=== PATIENT | female | born 1985 | race Caucasian/White ===

== ENCOUNTER → 2018-01-29 14:21 | Outpatient (CLI) | payer MEDICAID, SELFPAY ==
[2018-01-29 15:48] LABS: Hematocrit 35.4 % (37-47); Hemoglobin 11.9 g/dl (12.0-15.0); Mean Corp Hgb Conc 33.6 g/gl (32-36); Mean Corpuscular Hgb 30.4 pg (27.0-32.0); Mean Corpuscular Volume 90.5 fL (81-99); Mean Platelet Vol. 10.8 fl (6.2-12.0); Platelet Count 166 K/mm3 (150-450); RBC Distribution Width SD 42.4 fl (35.1-43.9); Red Blood Count 3.91 M/mm3 (4.2-5.4); Scan Indicated on CBC? Y/N NO; White Blood Count 8.9 K/mm3 (4.4-11.0)
[2018-01-29 15:55] LABS: Glucose Challenge Gest 1H 50g 84 mg/dL (70-140)
== END ==
PROVIDERS: Visit Provider Obstetrics & Gynecology
DX: Z34.83 Encounter for supervision of other normal pregnancy, third trimester (principal)
CPT/HCPCS: 36415; 82950; 85027

== ENCOUNTER → 2018-03-12 14:03 | Outpatient (CLI) | payer MEDICAID, SELFPAY ==
--- NOTE | 2018-03-12 14:03 | DT_ITS ---
This patient was seen during an EMR downtime March 05, 2018 - March 12, 2018. This patient may have a combination of paper and electronic documentation or all paper documentation. All documentation is viewable within the e-chart portion of [facility] for each patient visit.
[2018-03-12 19:04] LABS: Group B Strep DNA By PCR Negative (Negative)
[2018-03-12 19:05] LABS: Internal Control PASS; Probe Check PASS; Specimen Processing Control PASS
== END ==
PROVIDERS: Visit Provider Obstetrics & Gynecology
DX: Z36.85 Encounter for antenatal screening for Streptococcus B (principal)
CPT/HCPCS: 87081; 87653

== ENCOUNTER 2018-03-19 20:05 | Outpatient (CLI) | payer MEDICAID, SELFPAY ==
[2018-03-19 21:01] VITALS: BMI 25.4
[2018-03-19 21:17] LABS: Bacteria 0 SEEN /hpf (None Seen); Mucous, Urine 0 SEEN /hpf (<or=2+); Red Blood Cells-Urine 0 SEEN /hpf (0-5); White Blood Cells 0 SEEN /hpf (0-5)
[2018-03-19 21:18] LABS: Color, Urine Yellow (Yellow); Glucose, Dipstick Normal (Normal); Ketone-Dipstick Negative (Negative); Leukocyte Esterase-Dipstick 25 /ul (Negative); Nitrite-Dipstick Negative (Negative); Occult Blood-Urine 10 /ul (Negative); Protein-Dipstick Negative (Negative); Specific Gravity, Urine 1.005 (1.002-1.030); Urine Bilirubin Dipstick Negative (Negative); Urine Clarity Clear (Clear); Urine Urobilinogen Normal (Normal); Urine pH 6.5 (5.0 - 8.0)
[2018-03-19 21:48] LABS: Squamous Epithelial Cells - UA 0-5 SEEN /hpf (5-10)
--- NOTE | 2018-03-25 15:21 | OB.TRI.NOTE ---
History of Present Illness Date of Service: 03/20/18 Was patient seen by the physician?: No Reason For Visit: RULE OUT LABOR Final GENNA Source: US <20 weeks Gestational age: 36 weeks 2 days History of Present Illness: 32yo at 36 2/7 weeks gestatoin with c/o contractions. Allergies Penicillins Allergy (Verified 03/19/18 21:10) Unknown Physical Exam Vitals: avss NST - FHR Rate Baby A Baseline: 120 Variability:: Moderate Accelerations:: 15 x 15 Decelerations:: None NST Reactive:: Yes FHR Category:: Category I Uterine Activity:: 1-2/10 min Impression/Plan 32yo at 36 3/7wga with false labor, Cat I FHR -d/c home
== END 2018-03-19 23:50 | disposition home or self-care (01) ==
LOC: WPOUT 20:57 → WP 20:58
PROVIDERS: Visit Provider Obstetrics & Gynecology
DX: O47.03 False labor before 37 completed weeks of gestation, third trimester (principal); Z3A.36 36 weeks gestation of pregnancy
CPT/HCPCS: 59025; 59050; 81001; 99218; G0378

== ENCOUNTER 2018-03-28 12:59 | Emergency (ER) | payer MEDICAID, SELFPAY ==
[2018-03-28 13:01] VITALS: BP 116/92; PULSE 81; RESP 16; TEMP 36.9; O2SAT 100; BMI 24.8
--- NOTE | 2018-03-28 13:04 | NURSING ---
pt states she has been having small episodes of contractions and is almost 5cm dilated as of monday03/26/18
--- NOTE | 2018-03-28 13:27 | ED.DCSUM_ITS ---
- ER Visit Summary Date of Service: 03/28/18 Chief Complaint: Back pain History of Present Illness: The patient is a 32 F who is 38 weeks . She has had increasing low back pain for the past 9 days. She has intermittent spasms. The pain starts in her left buttock and radiates down her left leg. She has some anterior leg numbness and tingling. She never had issues with this before. Denies any injuries. Denies abdominal pain. Denies bleeding or discharge. She was having contractions yesterday, but none today. She was seen previously and treated with Tylenol. Her symptoms are not improving. Physical Examination: Vital signs unremarkable. Afebrile. Patient is tearful and pacing about the room. Abdomen is gravid. Nontender. Back shows some tenderness in the left lumbosacral area. Lower extremities otherwise unremarkable. She is neurovascular intact distally except for some subjective paresthesias to her anterior leg down to her foot. Test Results: None Emergency Department Course and Treatment: Patient was discussed with Dr. 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 He recommended continuing Tylenol. She may add [place], Flexeril, and prednisone. Risks were discussed. The patient will be treated as an outpatient. She may return for any new or worsening issues. Treatment Plan: As above Disposition: Discharged Impression: 1. Low back pain with left-sided sciatica This note was generated with [employer] dictation software. It may contain incorrect words, spelling, and punctuation that were not noted in review of the chart prior to signing ED Disposition - Plan for ED Patient: Chief Complaint: Back Referrals: Care Physician,No Primary [Primary Care Provider] -
--- NOTE | 2018-03-28 13:27 | ED.DEP ---
ED Disposition - Plan for ED Patient: Chief Complaint: Back Instructions: Back Pain During Prescriptions: Hydrocodone Bitart/Apap 5-325 [[place] 5MG-325MG] 1 tab PO Q6H PRN PRN 3 Days #10 tab PRN Reason: Pain Prednisone 40 mg PO UD 4 Days #16 tab Cyclobenzaprine [Flexeril] 10 mg PO TID PRN #10 tab PRN Reason: Muscle Spasm Referrals: Bang Garcia MD [STAFF PHYSICIAN] -
[2018-03-28] MEDS: HYDROcodone Bitartrate/Apap 5/325 Tablet PO (13:38)
[2018-03-28] MEDS: predniSONE 20 MG Tablet 40 MG PO (13:38)
== END 2018-03-28 13:44 | disposition home or self-care (01) ==
PROVIDERS: Emergency Provider Emergency Medicine
DX: O26.893 Other specified pregnancy related conditions, third trimester (principal); M54.42 Lumbago with sciatica, left side; R25.2 Cramp and spasm; Z3A.38 38 weeks gestation of pregnancy
CPT/HCPCS: 99285

== ENCOUNTER 2018-03-28 15:50 | Emergency (ER) | payer MEDICAID, SELFPAY ==
[2018-03-28 15:52] VITALS: BP 104/84; PULSE 101; RESP 18; TEMP 36.8; O2SAT 97; BMI 24.8
--- NOTE | 2018-03-28 16:20 | ED.VISSUMM ---
- ER Visit Summary Date of Service: 03/28/18 Chief Complaint: Severe left-sided back pain with numbness dorsal and plantar surface of left foot History of Present Illness: The patient is a 32 F who states this is her third visit to the emergency department in the last 9 days. Today she had 2 visits. She denies fever, chills night sweats. She denies bowel bladder dysfunction. I saddle paresthesia anesthesia. She denies symptoms consistent with radicular pain. She denies foot drop. Denies weakness in her quadricep muscles going up or down steps. She does have frequency. Denies vaginal bleeding or discharge. She denies change in color urine. She does report constipation. She states she has a pressure sensation in her low back. Please read written note for complete detail. Physical Examination: Vital signs are remarkable for a heart rate of 101. Patient began to cry when she was telling me her symptoms. Gait was observed from the restroom to the cot. She is able to walk on heels and toes. Abdomen is remarkable for gravid uterus. Back exam is remarkable for piercings. There is also tattoos. Straight leg test is negative. Crossover test is negative. Patella and ankle reflex are 3+ symmetric. There is no clonus or Babinski sign. EHL is intact. Normal perianal sensation. Test Results: None Emergency Department Course and Treatment: Patient was informed that the opiate analgesia was prescribed we will make her constipation worse. She was instructed to take either Metamucil or MiraLAX. She stated she wants watery stool now. She was informed she should drink 1 glass of MiraLAX every 1-2 hours until she has results. Treatment Plan: Appropriate home-going instructions and follow-up with credit department manager Dr. Maximo Hendrix Disposition: Discharged to home Impression: 1. Left lumbar sacral low back pain of muscular etiology 2. Constipation 3. Third trimester This note was generated with [employer] dictation software. It may contain incorrect words, spelling, and punctuation that were not noted in review of the chart prior to signing ED Disposition - Plan for ED Patient: Disposition: Home or Assisted Living Chief Complaint: Lower Extremity Injury Instructions: ED Constipation, ED Neck Back Pain General Referrals: Care Physician,No Primary [Primary Care Provider] - Maximo Hendrix MD [STAFF PHYSICIAN] - As Needed
== END 2018-03-28 16:31 | disposition home or self-care (01) ==
PROVIDERS: Emergency Provider Emergency Medicine
DX: O26.893 Other specified pregnancy related conditions, third trimester (principal); M54.42 Lumbago with sciatica, left side; O99.613 Diseases of the digestive system complicating pregnancy, third trimester; K59.00 Constipation, unspecified; R25.2 Cramp and spasm; Z3A.38 38 weeks gestation of pregnancy
CPT/HCPCS: 96374; 96375 ×2; 96376; 59025; 59050; 76815; 81001; 99218; 99282; 99285; A4216; G0378

== ENCOUNTER 2018-03-28 19:50 | Outpatient (CLI) | payer MEDICAID, SELFPAY ==
[2018-03-28 20:36] VITALS: BMI 24.8
[2018-03-28] MEDS: Nalbuphine 10 MG/ML Ampul IV ×2 (21:00→23:38)
[2018-03-28] MEDS: Bisacodyl 10 MG Suppository RECTAL (22:17)
[2018-03-28 23:44] LABS: Mucous, Urine 0 SEEN /hpf (<or=2+); Red Blood Cells-Urine 0 SEEN /hpf (0-5)
[2018-03-28 23:52] LABS: Color, Urine Yellow (Yellow); Glucose, Dipstick Normal (Normal); Ketone-Dipstick 5 mg/dl (Negative); Leukocyte Esterase-Dipstick 500 /ul (Negative); Nitrite-Dipstick Negative (Negative); Occult Blood-Urine 10 /ul (Negative); Protein-Dipstick Negative (Negative); Specific Gravity, Urine 1.015 (1.002-1.030); Urine Bilirubin Dipstick Negative (Negative); Urine Clarity Cloudy (Clear); Urine Urobilinogen Normal (Normal)
[2018-03-29 00:08] LABS: Squamous Epithelial Cells - UA 5-10 SEEN /hpf (5-10); White Blood Cells 25-50 SEEN /hpf (0-5)
[2018-03-29 00:09] LABS: Bacteria RARE /hpf (None Seen)
[2018-03-29] MEDS: HYDROmorphone 1 MG/ML Syringe IV ×2 (00:45→03:46)
--- NOTE | 2018-03-29 08:04 | OB.TRI.HP_ITS ---
- Problem List (1) Sciatic nerve pain Status: Acute Qualifiers: Laterality: left Qualified Code(s): M54.32 - Sciatica, left side History of Present Illness Date of Service: 03/29/18 Was patient seen by the physician?: Yes Reason For Visit: R/O LABOR/sciatica Date of Service: 03/29/18 Final GENNA: 04/14/18 Final GENNA Source: US <20 weeks Gestational age: 37 Weeks and 5 Days Allergies Penicillins Allergy (Verified 03/28/18 16:04) Unknown Physical Exam General: Alert, Oriented x3, - - appears uncomfortable but much improved after overnight observation Cardiovascular: Regular rate, Regular Rhythm Lungs: Clear to auscultation, Normal air movement Abdomen: Soft, Non Tender, Non-Distended, Gravid, Appropriate for Gestational Age Extremities:: No edema Neurological: Neuro grossly intact WATER CONSERVATIONIST: Normal external genitalia Estimated gestational size: Appropriate for gestational size Presentation: Cephalic Cervix Dilation (cm): 4 Station: -2 Effacement (%): 50 NST - FHR Rate Baby A Baseline: 140s Variability:: Moderate Accelerations:: 15 x 15 Decelerations:: None NST Reactive:: Yes, Appropriate for gestational age FHR Category:: Category I Uterine Activity:: rare Impression/Plan Sciatic type left buttock and back pain. Was seen in er and sent home with cyclobenzaprine and oxycodone. Presented here hour after taking these meds with hip pain. No signs of active labor or SROM. NST reassuring. Given 2 doses of IV dilaudid here. After 8 hours of observation was feeling somewhat better. Instructed to followup as scheduled and can arrange outpatient physical therapy if needed.
== END 2018-03-29 08:15 | disposition home or self-care (01) ==
LOC: WPOUT 20:26 → WP 20:27
PROVIDERS: Visit Provider Obstetrics & Gynecology
DX: M54.32 Sciatica, left side (principal)
CPT/HCPCS: 59025; 59050; 76815; 81001; 99218; A4216; G0378

== ENCOUNTER 2018-04-10 12:33 | Outpatient (CLI) | payer MEDICAID, SELFPAY ==
[2018-04-10 13:03] VITALS: BMI 26.2
[2018-04-10 13:33] LABS: ROM Internal Control Test YES-OK TO RESULT pt. (Internal QC); ROM Patient Test Negative (Negative)
--- NOTE | 2018-04-10 21:12 | OB.TRI.NOTE ---
History of Present Illness Date of Service: 04/10/18 Was patient seen by the physician?: Yes Reason For Visit: R/O RUPTURE Date of Service: 04/10/18 Final GENNA: 04/14/18 Final GENNA Source: US <20 weeks Gestational age: 39 Weeks and 3 Days History of Present Illness: 32 yo AB1 female at 39+ wk scheduled for induction at 04/16/18 presents with CC of gush of fluid. feeling minimal crampiness Allergies Penicillins Allergy (Verified 04/10/18 13:13) Unknown Physical Exam General: Alert, Oriented x3, Cooperative, No apparent distress HEENT: Atraumatic Abdomen: Soft, Gravid Presentation: Cephalic Cervix Dilation (cm): 3 - ROM TEST NEGATIVE Station: -2 NST - FHR Rate Baby A Baseline: 110-120 with avg variability accels to 150s Variability:: Moderate Accelerations:: 15 x 15 Decelerations:: None NST Reactive:: Yes, Appropriate for gestational age FHR Category:: Category I Uterine Activity:: Irreg UCs with irritability noted. UCs q 6-15 mins Impression/Plan 39 + wk False labor Home. Return if inc s/sx of labor. Plan for induction as scheduled.
== END 2018-04-10 14:20 | disposition home or self-care (01) ==
LOC: WPOUT 13:00 → WP 13:02
PROVIDERS: Visit Provider Obstetrics & Gynecology
DX: O47.1 False labor at or after 37 completed weeks of gestation (principal); Z3A.39 39 weeks gestation of pregnancy
CPT/HCPCS: 59025; 59050; 84112; 99218; G0378

== ENCOUNTER 2018-04-14 03:25 | Inpatient (IN) | payer MEDICAID, SELFPAY ==
[2018-04-14] MEDS: Lactated Ringers 1,000 ML 50 ML IV (03:55)
[2018-04-14 04:08] LABS: Hematocrit 43.2 % (37-47); Hemoglobin 14.9 g/dl (12.0-15.0); Mean Corp Hgb Conc 34.5 g/gl (32-36); Mean Corpuscular Hgb 30.7 pg (27.0-32.0); Mean Corpuscular Volume 89.1 fL (81-99); Mean Platelet Vol. 12.5 fl (6.2-12.0); Platelet Count 181 K/mm3 (150-450); RBC Distribution Width CV 13.5 % (11.6-14.6); RBC Distribution Width SD 43.4 fl (35.1-43.9); Red Blood Count 4.85 M/mm3 (4.2-5.4); White Blood Count 13.1 K/mm3 (4.4-11.0)
[2018-04-14 04:09] LABS: Scan Indicated on CBC? Y/N NO
[2018-04-14] MEDS: Oxytocin 30 units/NS 500 ml 30 UNITS/500 ML IV.SOLN 334 UNITS IV (05:39)
[2018-04-14 05:55] VITALS: BMI 24.5
--- NOTE | 2018-04-14 05:59 | PCM.OB.VAG ---
Vaginal Delivery Maternal Presentation: Active Labor 40 wk labor. Amniotic Membrane Rupture Type: Spontaneous at home Final GENNA: 04/14/18 Final GENNA Source: US <20 weeks Gestational age: 40 Weeks and 0 Days Date of Procedure: 04/14/18 Pre-Operative Diagnosis: 40 wk labor Post-Operative Diagnosis: smae Surgery/ Procedure Performed: Spontaneous Vaginal Delivery Anesthesiologist: Vandana Washington Type of Anesthesia: Epidural Description of Procedure: Epidural placed per pt request. of a rudd male over intact perineum. Head delivered TRINI. OP and nares bulb suctioned on perineum. No nuchal cord. Shoulders delivered easily. to maternal abdomen. End stage meconium noted. Cord clamped x two and cut. Infant then to isolette for stimulation, but with immediate vigorous cry then noted. Routine venous and arterial cord gases collected. Placenta delivered by spont expulsion, expression. 3V normal appearing, intact with trailing membranes PP exam: abrasions bilateral anterior perineum no lacerations, no repair Multiple flat, sessile dark skin tags noted Approximately eight - nine lesions. Patient hoping to have these all removed now under epidural. Advised against this -- none excised -- as all would require excisional biopsy and suturing. Largest lesion approx 3 cm x 1 cm length. EBL 350 cc pt and infant tolerated delivery well. To recovery stable condition. Presentation: Vertex, TRINI Placental Delivery Description: Spontaneous, Expressed Placenta Disposition: [facility] Cord Vessel Description: 3 Vessels Cord Gases drawn per routine: ABG, VBG Cord Entanglement: None Estimated Blood Loss: 350 Infant A gender: Male (1 minute): 8 (5 minute): 9 Episiotomy Description: None Laceration: None - abrasions only Medications given after delivery: IV Pitocin Complications: None
[2018-04-14] MEDS: Oxytocin 30 units/NS 500 ml 30 UNITS/500 ML IV.SOLN 167 UNITS IV (06:09)
--- NOTE | 2018-04-14 06:09 | PCM.DCVAG ---
Discharge Diet: No Restrictions Discharge Activity: May Shower, May Take a Tub Bath Return to work on:: 05/28/18 May resume sexual activity in: 4-6 weeks Additional Activity Instructions:: Nothing in the vagina for 4-6 weeks. You may return to work/school in 6 weeks. Additional Instructions: If you experience any of the following, contact your healthcare provider. Bleeding that soaks a pad every hour for 2 hours Fever 100.4 or higher Unrelieved abdominal pain Problems urinating (including inability to urinate or burning while urinating). Visual changes Severe headache Flu-like symptoms Pain or redness in one of both of your breasts Pain, warmth, tenderness or swelling in your legs, especially the calf area Frequent nausea and vomiting Symptoms of depression or anxiety If you experience any of the following, call 911 or go to the nearest Emergency Room. Chest pain Problems breathing Seizure activity Partial or complete paralysis of a body part, slurred speech, weakness or drooping of the face, or a sudden inability to walk or hold your balance Allergies/Adverse Reactions: Allergies Penicillins Allergy (Verified 04/10/18 13:13) Unknown Medications to take at Discharge Pediatric Multivit Comb No.42 [Flintstones] 1 each PO DAILY 04/10/18 Please Follow Up With: Bang Garcia MD - [phone] When: Call to make an appointment with your doctor in 6 weeks. Primary Care Physician: Care Physician,No Primary [Primary Care Provider] - Test Results: Test results from this visit will be discussed in further detail at your follow-up appointment, if applicable. Proposed Discharge Date: 04/16/18
--- NOTE | 2018-04-14 06:10 | DCINST_ITS ---
Discharge Diet: No Restrictions Discharge Activity: May Shower, May Take a Tub Bath Return to work on:: 05/28/18 May resume sexual activity in: 4-6 weeks Additional Activity Instructions:: Nothing in the vagina for 4-6 weeks. You may return to work/school in 6 weeks. Additional Instructions: If you experience any of the following, contact your healthcare provider. * Bleeding that soaks a pad every hour for 2 hours * Fever 100.4 or higher * Unrelieved abdominal pain * Problems urinating (including inability to urinate or burning while urinating) . * Visual changes * Severe headache * Flu-like symptoms * Pain or redness in one of both of your breasts * Pain, warmth, tenderness or swelling in your legs, especially the calf area * Frequent nausea and vomiting * Symptoms of depression or anxiety If you experience any of the following, call 911 or go to the nearest Emergency Room. * Chest pain * Problems breathing * Seizure activity * Partial or complete paralysis of a body part, slurred speech, weakness or drooping of the face, or a sudden inability to walk or hold your balance Allergies/Adverse Reactions: Allergies Penicillins Allergy (Verified 04/10/18 13:13) Unknown Medications to take at Discharge Pediatric Multivit Comb No.42 [Flintstones] 1 each PO DAILY 04/10/18 Please Follow Up With: Bang Garcia MD - [phone] When: Call to make an appointment with your doctor in 6 weeks. Primary Care Physician: Care Physician,No Primary [Primary Care Provider] - Test Results: Test results from this visit will be discussed in further detail at your follow- up appointment, if applicable. Proposed Discharge Date: 04/16/18
[2018-04-14] MEDS: 0.9% Saline Lock 10 ML Syringe IV (07:10)
--- NOTE | 2018-04-14 10:59 | NURSING ---
1015-Dr Shea notified that pt's significant other and daughter have left the unit for a few hours, so pt and baby are alone in room, Dr Shea in room to discuss the risks of while taking the supplement that she has been taking called Mike despite the discussion and eyelet operator recommendation to either stop or continue to breastfeed and stop the supplement, pt chose to continue to breastfeed baby and at 1030 she latched baby on breast.
[2018-04-14 11:15] VITALS: BP 106/69; PULSE 78; RESP 16; TEMP 36.8; O2SAT 98
--- NOTE | 2018-04-14 11:34 | CASEMGMT ---
SW referral received, pt just delivered today and it is anticipated pt will be here until Monday. SW will see pt Monday, RN in [facility] is aware. BEATRIZ Garay, DIABETES MANAGER
[2018-04-14 16:45] VITALS: BP 108/68; PULSE 73; RESP 16; TEMP 37.4; O2SAT 100
[2018-04-14] MEDS: Ibuprofen 600 MG Tablet PO (16:55)
[2018-04-14] MEDS: Multivitamins,Therapeutic Tablet 1 TABLET PO (18:11)
[2018-04-14 19:51] VITALS: BP 118/77; PULSE 77; RESP 16; TEMP 36.7
[2018-04-15] VITALS: BP 120/81; PULSE 75; RESP 16; TEMP 36.8
[2018-04-15 04:15] VITALS: BP 93/56; PULSE 65; RESP 16; TEMP 37.1
--- NOTE | 2018-04-15 07:33 | PCM.PN.OB ---
Subjective: PPD#1 Doing well. Pain control adequate. Would like to go home if baby is released. Circumcision planned, but not sure if done or not yet. h/o herbal opioid substance in and tox screen planned on baby. Objective: Walking around room, holding baby. - Physical Exam General: Alert, Oriented x3, Cooperative, No apparent distress HEENT: Atraumatic Neck: Supple Neurological: Cranial nerves II-XII grossly intact Psych/Mental Status: Normal Affect Vital Signs Temp Pulse Resp BP Pulse Ox 98.8 F 65 16 93/56 L 100 04/15/18 04:15 04/15/18 04:15 04/15/18 04:15 04/15/18 04:15 04/14/18 16:45 Oxygen Delivery Method Room Air Weight: 61 kg Body Mass Index (BMI) 24.5 Intake and Output for Last 24 Hours 04/13/18 04/14/18 04/15/18 23:59 23:59 23:59 Output Total 500 / 500 Balance -500 / -500 Medical Necessity - Tobacco Use Smoking Status: Former smoker Assessment/Plan All Active Problems Sciatic nerve pain (Acute) PPD#1 Stable . Continue care. Would like to go home today, but tox screen on baby and Social service consult also needed. Will hold dischg until tomorrow.
[2018-04-15 10:00] VITALS: BP 129/87; PULSE 76; RESP 18; TEMP 36.6
[2018-04-15] MEDS: Multivitamins,Therapeutic Tablet 1 TABLET PO (17:12)
[2018-04-15] MEDS: Ibuprofen 600 MG Tablet PO (17:14)
[2018-04-15 18:00] VITALS: BP 110/71; PULSE 71; RESP 16; TEMP 36.6
[2018-04-15 20:00] VITALS: BP 124/78; PULSE 77; RESP 17; TEMP 37.1
[2018-04-15 22:00] VITALS: PULSE 99; RESP 15; TEMP 37.1
[2018-04-16 02:00] VITALS: BP 135/88; PULSE 95; RESP 17
--- NOTE | 2018-04-16 07:56 | PCM.PN.OB ---
Subjective: PPD#2 Pt states no concerns for self. Taking prn pain meds. Baby is having jerking motions in his sleep. Pt had been on an herbal substance throughout with opioid activity. Advised that her baby may be withdrawing to medications/drugs taken. Called Dr. Sultana in to evaluate baby... still with jerking motion of the hand. - Physical Exam General: Alert, Oriented x3, Cooperative, No apparent distress HEENT: Atraumatic Neck: Supple Abdomen: Soft - Fundus firm NT at umbilicus Neurological: Cranial nerves II-XII grossly intact Psych/Mental Status: Normal Affect - concerned re baby Vital Signs Temp Pulse Resp BP Pulse Ox 98.7 F 95 17 135/88 H 100 04/15/18 22:00 04/16/18 02:00 04/16/18 02:00 04/16/18 02:00 04/14/18 16:45 Oxygen Delivery Method Room Air Weight: 61 kg Body Mass Index (BMI) 24.5 Intake and Output for Last 24 Hours 04/14/18 04/15/18 04/16/18 23:59 23:59 23:59 Output Total 500 / 500 Balance -500 / -500 Medical Necessity - Tobacco Use Smoking Status: Former smoker Assessment/Plan All Active Problems Sciatic nerve pain (Acute) PPD#2 Stable . Continue care. Likely home today, meconium tox screen on baby pending, Social service consult also needed. Will hold dischg until completion
--- NOTE | 2018-04-16 07:59 | PN.OBGYN_ITS ---
Subjective: PPD#2 Pt states no concerns for self. Taking prn pain meds. Baby is having jerking motions in his sleep. Pt had been on an herbal substance throughout with opioid activity. Advised that her baby may be withdrawing to medications/ drugs taken. Called Dr. Sultana in to evaluate baby... still with jerking motion of the hand. - Physical Exam General: Alert, Oriented x3, Cooperative, No apparent distress HEENT: Atraumatic Neck: Supple Abdomen: Soft - Fundus firm NT at umbilicus Neurological: Cranial nerves II-XII grossly intact Psych/Mental Status: Normal Affect - concerned re baby Vital Signs Temp Pulse Resp BP Pulse Ox 98.7 F 95 17 135/88 H 100 04/15/18 22:00 04/16/18 02:00 04/16/18 02:00 04/16/18 02:00 04/14/18 16:45 Oxygen Delivery Method Room Air Weight: 61 kg Body Mass Index (BMI) 24.5 Intake and Output for Last 24 Hours 04/14/18 04/15/18 04/16/18 23:59 23:59 23:59 Output Total 500 / 500 Balance -500 / -500 Medical Necessity - Tobacco Use Smoking Status: Former smoker Assessment/Plan All Active Problems Sciatic nerve pain (Acute) PPD#2 Stable . Continue care. Likely home today, meconium tox screen on baby pending, Social service consult also needed. Will hold dischg until completion
[2018-04-16 08:09] VITALS: BP 123/86; PULSE 74; RESP 16; TEMP 37.3
[2018-04-16] MEDS: Multivitamins,Therapeutic Tablet 1 TABLET PO (08:53)
[2018-04-16] MEDS: Senna/Docusate Sodium 1 Tablet PO (09:01)
[2018-04-16] MEDS: Ibuprofen 600 MG Tablet PO (13:48)
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
--- NOTE | 2018-04-17 15:57 | CASEMGMT ---
Social Work Note Labor and Delivery Unit Met with MOB today, offered support and provided resources for home going. Called [facility] ([facility]) and spoke with Sara in intake at [phone], extension 2. Reported concern for Substance Exposed Infant, maternal substance use history as reported by the MOB to this field underwriter, and care indicating that MOB should stop using Kratom during . Reported concerns for baby's DIAMANTE scores and admission to the [facility] for continued care and treatment. Reported the negative urine drug screen for baby, and pending meconium drug screen. Reported maternal history of depression, anxiety, depression present during , and MOB not in any current or past treatment for mental health or substance abuse. Reported limited support system in place for MOB in the community. Provided demographic data including persons reported to be living in the home, MOB's receptiveness to social work interactions, and strengths present for this family. No other services requested or indicated for this visit. Social work continues to follow patient/MOB while baby is in the [facility] system. -BEATRIZ Arreola, FRONT END LOADER DRIVER
== END 2018-04-16 14:00 | disposition home or self-care (01) | DRG 372 ==
PROVIDERS: Admitting Provider Obstetrics & Gynecology; Visit Provider Obstetrics & Gynecology
DX: O77.0 Labor and delivery complicated by meconium in amniotic fluid (principal); O90.89 Other complications of the puerperium, not elsewhere classified; M54.30 Sciatica, unspecified side; Z87.891 Personal history of nicotine dependence; Z3A.40 40 weeks gestation of pregnancy; Z37.0 Single live birth
CPT/HCPCS: 59050; 85027; 86850; 86900; 99218; J7120; A4216; G0378

== ENCOUNTER → 2023-04-28 | Outpatient (CLI) | payer MEDICAID, SELFPAY ==
[2023-04-28 16:24] LABS: Vitamin B12 724 pg/mL (211-911); Vitamin D,25 Hydroxy 38.2 ng/mL
[2023-04-28 16:32] LABS: Ferritin 15 ng/mL (8-252); T4 Free Direct 0.91 ng/dL (0.76-1.46)
== END | disposition home or self-care (01) ==
PROVIDERS: PCP Nurse Practitioner Family; Referring Provider Internal Medicine Endocrinology, Diabetes & Metabolism; Visit Provider Internal Medicine Endocrinology, Diabetes & Metabolism
DX: E03.8 Other specified hypothyroidism (principal); E06.3 Autoimmune thyroiditis; E55.9 Vitamin D deficiency, unspecified
CPT/HCPCS: 36415; 82306; 82607; 82728; 84439; 84443

== ENCOUNTER → 2023-09-04 | Outpatient (CLI) | payer MEDICAID, SELFPAY ==
[2023-09-04 11:02] LABS: T4 Free Direct 0.85 ng/dL (0.76-1.46)
== END | disposition home or self-care (01) ==
LOC: LAB 09:23
PROVIDERS: Referring Provider Internal Medicine Endocrinology, Diabetes & Metabolism; Visit Provider Internal Medicine Endocrinology, Diabetes & Metabolism
DX: E03.8 Other specified hypothyroidism (principal); E06.3 Autoimmune thyroiditis
CPT/HCPCS: 36415; 84439; 84443

== ENCOUNTER → 2023-12-04 | Outpatient (CLI) | payer MEDICAID, SELFPAY ==
[2023-12-04 12:19] LABS: T4 Free Direct 0.99 ng/dL (0.76-1.46); Thyroid Stim Hormone (TSH) 7.08 uIU/mL (0.358-3.74)
== END | disposition home or self-care (01) ==
LOC: LAB 10:55
PROVIDERS: Referring Provider Internal Medicine Endocrinology, Diabetes & Metabolism; Visit Provider Internal Medicine Endocrinology, Diabetes & Metabolism
DX: E03.8 Other specified hypothyroidism (principal); E06.3 Autoimmune thyroiditis
CPT/HCPCS: 36415; 84439; 84443

== ENCOUNTER → 2024-03-01 | Outpatient (CLI) | payer MEDICAID, SELFPAY ==
[2024-03-01 15:57] LABS: T4 Free Direct 1.01 ng/dL (0.76-1.46); Thyroid Stim Hormone (TSH) 1.46 uIU/mL (0.358-3.74)
== END | disposition home or self-care (01) ==
LOC: LAB 15:08
PROVIDERS: Referring Provider Internal Medicine Endocrinology, Diabetes & Metabolism; Visit Provider Internal Medicine Endocrinology, Diabetes & Metabolism
DX: E03.8 Other specified hypothyroidism (principal); E06.3 Autoimmune thyroiditis
CPT/HCPCS: 36415; 84439; 84443

== ENCOUNTER → 2024-05-27 | Outpatient (CLI) | payer MEDICAID, SELFPAY ==
[2024-05-27 10:50] LABS: Ferritin 28 ng/mL (8-252); T4 Free Direct 1.17 ng/dL (0.76-1.46)
== END | disposition home or self-care (01) ==
LOC: LAB 08:55
PROVIDERS: Referring Provider Internal Medicine Endocrinology, Diabetes & Metabolism; Visit Provider Internal Medicine Endocrinology, Diabetes & Metabolism
DX: E03.8 Other specified hypothyroidism (principal); E06.3 Autoimmune thyroiditis; E61.1 Iron deficiency
CPT/HCPCS: 36415; 82728; 84439; 84443

== ENCOUNTER → 2024-08-01 | Outpatient (CLI) | payer MEDICAID, SELFPAY ==
[2024-08-01 11:12] LABS: Estradiol 109.5 pg/mL; Follicle Stimulating Hormone 5.4 mIU/mL; T4 Free Direct 1.16 ng/dL (0.76-1.46)
[2024-08-02 13:08] LABS: PROLACTIN 9.3 ng/mL (4.8-33.4)
== END | disposition home or self-care (01) ==
LOC: LAB 10:24
PROVIDERS: Referring Provider Internal Medicine Endocrinology, Diabetes & Metabolism; Visit Provider Internal Medicine Endocrinology, Diabetes & Metabolism
DX: E03.8 Other specified hypothyroidism (principal); E06.3 Autoimmune thyroiditis; N64.3 Galactorrhea not associated with childbirth
CPT/HCPCS: 36415; 82670; 83001; 83002; 84146; 84439; 84443

== ENCOUNTER → 2025-05-21 | Outpatient (CLI) | payer MEDICAID, SELFPAY ==
[2025-05-22 04:07] LABS: PROLACTIN 8.4 ng/mL (4.8-33.4)
== END | disposition home or self-care (01) ==
LOC: LAB 09:10
PROVIDERS: PCP Family Medicine; Referring Provider Internal Medicine Endocrinology, Diabetes & Metabolism; Visit Provider Internal Medicine Endocrinology, Diabetes & Metabolism
DX: E06.3 Autoimmune thyroiditis (principal); E03.8 Other specified hypothyroidism; N64.3 Galactorrhea not associated with childbirth
CPT/HCPCS: 36415; 84146; 84439; 84443

== ENCOUNTER → 2025-09-05 | Outpatient (CLI) | payer MEDICAID, SELFPAY ==
--- OUTSIDE RECORDS SUMMARY | 2025-09-05 12:17 | XMS RPT_ITS | CCD ---
Author Organization [facility] CliniSynh Care Team Providers Care Early Head Start Director Name Role Phone SHAHID DAVIS Unavailable Unavai JUANY Phillips Unavailable Unavailable NO PRIMARY CARE, Unavailable Unavailable CORTEZ MCKEON Unavailable Unavailable JUANY CLAIRE Unavailable Unavailable NO PRIMARY CARE, Unavailable Unavailable Required, No Pcp Unavailable Unavailable Tim Fontaine I Unavailable Unavailable Marina SLEEVE TURNER, SLEEVE TURNER-C Juan Manuel Primary Care Provider Marina SLEEVE TURNER, SLEEVE TURNER-C Juan Manuel Referring Provider Dr. Raffaele Kirby Attending Provider Fer Durand MD Primary Care Provider FER DURAND Referring Unavailable FER DURAND Primary Care Unavailable Dr. Fer Durand MD Primary Care Provider Dr. Raffaele Kirby MD Attending Provider [phone] Raffaele Kirby MD Referring Provider Kraig Farah Primary Care Unavailable Raffaele Kirby Attending Unavailable Raffaele Kirby Referring Unavailable Fer Durand Primary Care Unavailable Raffaele Kirby Attending Unavailable Raffaele Kirby Referring Unavailable FER DURAND Primary Care Unavailable FER DURAND Attending Unavailable FER DURAND Attending Unavailable FER DURAND Primary Care Unavailable FER DURAND Attending Unavailable FER DURAND Primary Care Unavailable Allergies Allergy Classification Reported Allergen(s) Allergy Type Date of Onset Reaction(s) Facility (13 sources) Penicillins; Translations: [PENICILLINS] Propensity to adverse reactions to drug (disorder) 8 Other (See Comments) [facility] Repository (1 source) Penicillin Drug Allergy Unknown [facility] Medications Current Medications Medication Drug Class(es) Dates Sig (Normalized) Sig (Original) activated charcoal, bulk, Powd (4 sources) activated charco al, bulk, Powd by Miscellaneous route daily . Active activated charco al, bulk, Powd by Miscellaneous route daily . 0 Active astaxanthin 4 mg oral capsule (4 sources) astaxanthin 4 mg cap Take by mouth . Active Dhxvige-Usmhaxhjv-Bmko (3 sources) Start: 04-18-2023 take 1 tablet by mouth once daily Jztspbg-Ucborawro-Ncim Active 1 TABLET PO DAILY April 17, 2023 11:00pm Start: 04-18-2023 take 1 tablet by jason th once daily Whnjpqe-Trjzsalls-Auqu Active 1 TABLET P O DAILY April 18, 2023 12:00am cholecalciferol, vitamin D3, (VITAMIN D3 ORAL) (5 sources) cholecalciferol, vitamin D3, (VITAMIN D3 ORAL) Take by mouth daily . Active cholecalciferol, vitamin D3, (VITAMIN D3 ORAL) Take by mouth daily . 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 Other specified hypothyroidism Autoimmune thyroiditis 2 tabs Sundays, 1 tablet Monday-Monday Start: 04-18-2023 End: 05-31-2023 take 1 capsule by mouth once daily Levothyroxine 137 mcg capsule Discontinued 137 ug PO DAILY April 18, 2023 12:00am May 31, 2023 12:08pm Start: 06-29-2022 End: 07-08-2022 take 1 tablet by mouth once daily after mealtime Euthyrox 75 mcg (0.075 mg) oral tablet ; 1 tab(s) orally once a day x 10 days Quantity: 10 Refills: 0 Ordered: 29-Jun-2022 Tim Fontaine I Start: 29-Jun-2022 End: 08-Jul-2022 Generic Substitution Allowed Comments: It is very important that you take or use this exactly as directed. Do not skip doses or discontinue unless directed by your doctor.Medication should be taken with plenty of water.Some non-prescription drugs may aggravate your condition. Read all labels carefully. If a warning appears, check with your doctor before taking.Take medication on an empty stomach 1 hour before or 2 to 3 hours after a meal unless otherwise directed by your doctor. Comment on above: It is very important that you take or use this exactly as directed. Do not skip doses or discontinue unless directed by your doctor.Medication should be taken with plenty of water.Some non-prescription drugs may aggravate your condition. Read all labels carefully. If a warning appears, check with your doctor before taking.Take medication on an empty stomach 1 hour before or 2 to 3 hours after a meal unless otherwise directed by your doctor. nitrofurantoin, macrocrystals 25 mg / nitrofurantoin, monohydrate 75 mg oral capsule (1 source) Nitrofuran Antibacterial Start: 05-28-20 End: 06-02-20 take 1 capsule by mouth twice daily nitrofurantoin, macrocrystal-mon ohydrate, (Macrobid) 100 MG capsule Indications: Acute cystitis without hematuria Take 1 (one) capsule (100 mg total) by mouth 2 (two) times a day for 5 days . 10 capsule 05/28/2024 06/02/2024 Active omega-3 fatty acids/fish oil (fish oil-omega-3 fatty acids) 300-1,000 mg capsule (4 sources) take 2 capsules by mouth once daily omega-3 fatty acids/fish oil (fish oil-omega-3 fatty acids) 300-1,000 mg capsule Take 2 (two) capsules by mouth daily . Active take 2 capsules by mouth once da ayse omega-3 fatty acids/fish oil (fish oil-omega-3 fatty acids) 300-1,000 mg capsule Take 2 (two) capsules by mouth daily . 0 Active Selenium (3 sources) Start: 04-18-2023 take 200 ug by mouth once daily Selenium Active 200 MCG PO DAILY April 17, 2023 11:00pm Start: 04-18-2023 take 200 ug by mouth once perla y Selenium Active 200 MCG PO DAILY April 18, 2023 12:00am SELENIUM ORAL (5 sources) take 200 ug by mouth once daily SELENIUM ORAL Take 200 mcg by mouth daily . Active take 200 ug by mouth once daily SELENIUM ORAL Take 200 mcg by mouth daily . 0 Active SELENIUM ORAL Ta ke by mouth daily . 0 Active tyrosine 1000 mg oral tablet (4 sources) Start: 04-18-2023 take 1000 mg by mout h once daily 1 hour(s) after mealtime Tyrosine Active 1000 MG PO DAILY April 17, 2023 11:00pm administer on an empty stomach, 1 hour before or 2-3 hours after meals Start: 04-18-2023 End: 04-26-2024 take 1 tablet by mouth once daily 1 hour(s) after mealtime Tyrosine 500 mg tablet Discontinued 1000 mg PO DAILY April 18, 2023 12:00am April 26, 2024 11:12am administer on an empty stomach, 1 hour before or 2-3 hours after meals vitamin b12 1 mg oral tablet (4 sources) Vitamin B12 take 1 tablet by mouth once daily cyanocobalamin (B-12) 1000 MCG tablet Take 1 (one) tablet (1,000 mcg total) by mouth daily . Active Completed/Discontinued Medications Medication Drug Class(es) Dates Sig (Normalized) Sig (Original) cabergoline 0.5 mg oral tablet (3 sources) Ergot Derivative Start: 08-04-2024 End: 08-08-2025 take 1 tablet by mouth every week cabergoline (DOSTINEX) 0.5 mg tablet Take 1 (one) tablet (0.5 mg total) by mouth once a week . 08/05/2024 08/08/2025 Discontinued CALCIUM CARB-MAG OX-ZINC GLUC ORAL (4 sources) End: 08-08-2025 CALCIUM CARB-MAG OX-ZINC GLUC ORAL Take by mouth . 08/08/2025 Discontinued CALCIUM CARB-MAG OX-ZINC GLUC ORAL Take by mouth . Active CALCIUM CARB-MAG OX-ZINC GLUC ORAL Take by mouth . 0 Active Xzifglp-Bjtplcwjl-Wmnc tablet (1 source) Start: 04-18-2023 End: 04-26-2024 Lxxxhqu-Hinousuts-Oiyu tablet Discontinued 1 {tbl} PO DAILY April 18, 2023 12:00am April 26, 2024 11:11am cholecalciferol 0.025 mg oral capsule (4 sources) Vitamin D Start: 04-18-2023 End: 04-26-2024 take 1 capsule by mouth once daily Cholecalciferol (Vitamin D3) 25 mcg (1,000 unit) capsule Discontinued 25 ug PO DAILY April 18, 2023 12:00am April 26, 2024 11:11am Cranberry preparation (5 sources) Non-Standardi zed Food Allergenic Extract, Non-Standardi zed Plant Allergenic Extract End: 08-08-2025 CRANBERRY ORAL Take by mouth daily . 08/08/2025 Discontinued CRANBERRY ORAL T tsering by mouth daily . Active CRANBERRY ORAL T tsering by mouth daily . 0 Active [place] 7-Dud-Gxc-Fish Oil (4 sources) Start: 04-18-2023 End: 04-26-2024 [place] 9-Epa-Yzr-Fish Oil (Fi sh Oil) 300-1,000 mg capsule Discontinued 1 NMA PO DAILY April 18, 2023 12:00am April 26, 2024 11:11am Start: 04-18-2023 take 300-1000 mg by mouth once daily [place] 1-Pzc-Sfq-Fish Oil (Fish Oil) 300-1,000 mg capsule Active 1 CAP PO DAILY April 17, 2023 11:00pm Start: 04-18-2023 take 300-1000 mg by mouth once daily [place] 4-Yrg-Qdy-Fish Oil (Fish Oil) 300-1,000 mg capsule Active 1 CAP PO DAILY April 18, 2023 12:00am L-TYROSINE ORAL (4 sources) End: 08-08-2025 take 500 mg by mouth once daily L-TYROSINE ORAL Take 500 mg by mouth daily . 08/08/2025 Discontinued take 500 mg by mouth once daily L-TYROSINE ORAL Take 500 mg by mouth daily . Active take 500 mg by mouth once daily L-TYROSINE ORAL Take 500 mg by mouth daily . 0 Active multivitamin with iron Tab (5 sources) End: 08-08-2025 multivitamin with iron Tab T tsering by mouth once daily . 08/08/2025 Discontinued multivitamin wit h iron Tab Take by mouth once daily . Active multivitamin wit h iron Tab Take by mouth once daily . 0 Active Pediatric Multivitamin No.42 (Flintstones) 1 EACH tablet,chewable (4 sources) Start: 04-10-2018 End: 04-18-2023 take 1 tablet by mouth once daily Pediatric Multivitamin No.42 (Flintstones) 1 EACH tablet,chewable Discontinued 1 NMA PO DAILY April 10, 2018 12:00am April 18, 2023 3:53pm Start: 04-10-2018 End: 04-18-2023 take 1 tablet by mouth once daily Pediatric Multivitamin No.42 (Flintstones) 1 EACH tablet,chewable Discontinued 1 EACH PO DAILY April 09, 2018 11:00pm April 18, 2023 2:53pm Start: 04-10-2018 End: 04-18-2023 take 1 tablet by mouth once daily Pediatric Multivitamin No.42 (Flintstones) 1 EACH tablet,chewable Discontinued 1 EACH PO DAILY April 10, 2018 12:00am April 18, 2023 3:53pm Selenium 200 mcg capsule (1 source) Start: 04-18-2023 End: 04-26-2024 take 1 capsule by mouth once daily Selenium 200 mcg capsule Discontinued 200 ug PO DAILY April 18, 2023 12:00am April 26, 2024 11:12am traZODone hydrochloride 50 mg oral tablet (2 sources) Serotonin Reuptake Inhibitor Start: 08-08-2024 End: 08-08-2025 traZODone (DESYREL) 50 MG tablet Indications: Insomnia, unspecified type 1/2 or a whole tablet as need for sleep . 30 tablet 08/08/2024 08/08/2025 Discontinued Problems Active Problems Problem Classification Problem Date Documented Da te Episodic/Chronic Anxiety disorders (3 sources) Obsessive-compulsive disorder; Translations: [Obsessive-compulsiv e disorder, unspecified] Onset: 08-08-2024 08-08-2024 Chronic Genitourinary symptoms and ill-defined conditions (1 source) Dysuria; Translations: [Dysuria] 05-28-2024 Episodic Immunizations and screening for infectious disease (8 sources) Patient encounter status; Translations: [Encounter for screening for other viral diseases] Onset: 08-08-2025 08-08-2025 Episodic Malaise and fatigue (3 sources) Fatigue; Translations: [Other fatigue] Onset: 12-12-2023 12-06-2023 Episodic Nonmalignant breast conditions (2 sources) Increased ; Translations: [Galactorrhea not associated with childbirth] Onset: 05-27-2025 08-01-2024 Episodic Nutritional deficiencies (1 source) Iron deficiency; Translations: [Iron deficiency] 05-06-2024 Episodic Other circulatory disease (2 sources) Raynaud's phenomenon; Translations: [Raynaud's syndrome without gangrene] Onset: 08-08-2025 08-08-2025 Chronic Other circulatory disease (2 sources) Raynaud's syndrome without gangrene; Translations: [Raynaud's syndrome without gangrene] Onset: 08-08-2025 Chronic Other gastrointestinal disorders (4 sources) 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; Translations: [Malabsorption due to intolerance, not elsewhere classified] 05-01-2023 Chronic Other gastrointestinal disorders (1 source) Malabsorption due to intolerance, not elsewhere classified; Translations: [Other specified intestinal malabsorption] 04-28-2023 Chronic Other screening for suspected conditions (not mental disorders or infectious disease) (4 sources) Encounter for screening for cardiovascular disorders; Translations: [Encounter for screening for diabetes mellitus] Onset: 08-08-2025 Episodic Residual codes; unclassified (1 source) Insomnia; Translations: [Insomnia, unspecified] 08-08-2024 Episodic Spondylosis; intervertebral disc disorders; other back problems (4 sources) Sciatica; Translations: [Sciatica, unspecified side] 04-14-2018 Episodic Thyroid disorders (20 sources) Hypothyroidism; Translations: [Unspecified acquired hypothyroidism] Onset: 12-06-2023 06-29-2022 Chronic Unclassified (2 sources) ABNORMAL LABS 06-29-2022 Comment on above: ABNORMAL LABS Urinary tract infections (1 source) Acute cystitis; Translations: [Acute cystitis without hematuria] 05-28-2024 Episodic Past or Other Problems Problem Classification Problem Date Documented Da te Episodic/Chronic Mood disorders (2 sources) Mood disorders Onset: 08-08-2025 08-08-2025 Unclassified (1 source) Onset: 05-28-2024 05-28-2024 Results Test Name Value Interpretation Reference Range Facility PROLACTIN 4465on 05-22-2025 PROLACTIN 8.4 ng/mL Normal 4.8-33.4 [facility] Comment on above: Result Comment: Perf ormed at: [facility] [address] [id number] Can Capper: Juvenal Miller PhD, Phone: [phone] Performed By: #### L 506.0400, L3702.3231, G648.1527 #### [facility] [address] [place], [address] Serum or plasma prolactin me asurement (mass/volume)Ordered By: Raffaele Kirby on 05-21-2025 Prolactin [Mass/Vol] 8.4 ng/mL 4.8-33.4 [facility] Comment on above: Performed at: [facility] [address] [id number] Director: Juvenal Miller PhD, Phone: [phone] T4 Free Directon 05-21-2025 T4 FREE DIRECT 1.40 ng/dL Normal 0.76-1.46 [facility] Comment on above: Performed By: #### L 506.0400, L3100.5400, S347.3609 #### [facility] [address] [place], [address] T4 freeOrdered By: Raffaele Kirby on 05-21-2025 Free T4 [Mass/Vol] 1.40 ng/dL 0.76-1.46 [facility] TSH DL <= 0.005 mIU/L QnOrde red By: Raffaele Kirby on 05-21-2025 TSH Qn 2.200 uIU/mL 0.300-4.200 [facility] Thyroid Stim Hormone (TSH)on 05-21-2025 TSH 2.200 uIU/mL Normal 0.300-4.200 [facility] Comment on above: Performed By: #### L 506.0400, L3100.5400, L501.9520 #### [facility] [address] [place], [place], [id number] PROLACTIN 4465on 08-02-2024 PROLACTIN 9.3 ng/mL Normal 4.8-33.4 [facility] Comment on above: Result Comment: Perf ormed at: [facility] [id number] Can Capper: Juvenal Miller PhD, Phone: [phone] Performed By: #### L 506.0400, L501.9520, L3100.5055, L3100.5400, L3300.1750 #### [facility] [address] [place], [place], [id number] Estradiolon 08-01-2024 ESTRADIOL 109.5 pg/mL Normal [facility] Comment on above: Result Comment: NORM AL REFERENCE RANGES FEMALE FOLLICULAR 21.4 - 164.8 pg/mL MID-CYCLE PEAK 49.9 - 367.2 pg/mL LUTEAL 40.2 - 259.0 pg/mL POST-MENOPAUSAL ON MHT <11.0 - 462.1 pg/mL NOT ON MHT <11.0 - 58.3 pg/mL MALE <11.0 - 52.5 pg/mL NOTE: [facility] HAS CONFIRMED THE DRUG FULVETRANT (FASLODEX) MAY CAUSE FALSELY ELEVATED ESTRADIOL RESULTS WHEN USING THIS TEST METHOD. IF PATIENT IS TAKING FULVESTRANT AN ALTERNATIVE METHOD SHOULD BE USED TO DETERMINE ESTRADIOL CONCENTRATION. Performed By: #### L 506.0400, L501.9520, L3100.5055, L3100.5400, L3300.1750 #### [facility] [address] [place], [address] FSH and LHon 08-01-2024 FSH 5.4 mIU/mL Normal [facility] Comment on above: Result Comment: NORMAL REFERENCE RANGES FEMALE FOLLICULAR 2.3 - 12.6 mIU/mL MID-CYCLE PEAK 5.2 - 17.5 mIU/mL LUTEAL 1.7 - 12.9 mIU/mL POST-MENOPAUSAL ON MHT 5.9 - 72.8 mIU/mL NOT ON MHT 12.7 - 132.2 mlU/mL MALE 0.7 - 10.8 mIU/mL Performed By: #### L 506.0400, L501.9520, L3100.5055, L3100.5400, L3300.1750 #### [facility] [address] [place], [address] LH 5.0 mIU/mL Normal [facility] Comment on above: Result Comment: NORMAL REFERENCE RANGES FEMALE FOLLICULAR 1.9 - 26.2 mIU/mL MID-CYCLE PEAK 22.8 - 76.1 mIU/mL LUTEAL 0.6 - 16.6 mIU/mL POST-MENOPAUSAL ON MHT 1.1 - 52.4 mIU/mL NOT ON MHT 8.6 - 61.8 mIU/mL MALE 1.2 - 10.6 mIU/mL Performed By: #### L 506.0400, L501.9520, L3100.5055, L3100.5400, L3300.1750 #### [facility] [address] [place], [address] T4 Free Directon 08-01-2024 T4 FREE DIRECT 1.16 ng/dL Normal 0.76-1.46 [facility] Comment on above: Performed By: #### L 506.0400, [id number], L3100.5055, L3100.5400, L3300.1750 #### [facility] [address] [place], [address] Thyroid Stim Hormone (TSH)on 08-01-2024 TSH 1.090 uIU/mL Normal 0.358-3.740 [facility] Comment on above: Performed By: #### L 506.0400, [id number], L3100.5055, L3100.5400, L3300.1750 #### [facility] [address] [place], [address] POC Urinalysis Dipstick, Aut oOrdered By: Antonina Leach on 05-28-2024 Bilirubin Ql (U) Negative Negative [facility] Glucose Ql (U) Negative Normal, Negative mg/dL [facility] Hemoglobin Ql (U) Negative Negative [facility] Interpretation and review of laboratory results Abnormal [facility] Ketones Ql (U) Negative Negative mg/dL [facility] Leukocyte esterase Test strip Ql (U) Small Abnormal Negative [facility] Nitrite Ql (U) Negative Negative [facility] pH (U) 8.5 [pH] Abnormal 5.0 - 7.0 [facility] Protein Ql (U) Negative Negative mg/dL [facility] Specific gravity (U) [Rel density] 1.015 1.005 - 1.025 [facility] Urobilinogen Qn (U) 0.2 mg/dL <2.0, 0. 2, Normal, Negative, 1.0, 2.0, <1.0 [facility] Serum or plasma thyroid stim ulating hormone (TSH) measurement (units/volume)Ordered By: Raffaele Kirby on 12-04-2023 TSH Qn 7.08 uIU/mL 0.358-3.74 [facility] Thin prep Papanicolaou smear with manual screeningOrdered By: Raffaele Kirby on 12-04-2023 Thin prep Papanicolaou smear with manual screening 0.99 ng/dL 0.76-1.46 [facility] - Chemistry and C hemistry - challengeOrdered By: Raffaele Kirby on 09-04-2023 Free T4 [Mass/Vol] 0.85 ng/dL 0.76-1.46 [facility] No Panel InformationOrdered By: Raffaele Kirby on 09-04-2023 Thyroid Stimulating Hormone (TSH) 13.30 uIU/mL 0.358-3.74 [facility] - Chemistry and C hemistry - challengeOrdered By: Raffaele Kirby on 04-28-2023 Cobalamin (Vitamin B12) [Mass/Vol] 724 pg/mL 211-911 [facility] Free T4 [Mass/Vol] 0.91 ng/dL 0.76-1.46 [facility] No Panel InformationOrdered By: Raffaele Kirby on 04-28-2023 Thyroid Stimulating Hormone (TSH) 10.40 uIU/mL 0.358-3.74 [facility] Vitamin D 25-Hydroxy 38.2 ng/mL [facility] Comment on above: Vitamin D 25(OH) Sta tus Range Deficiency <20 ng/mL (50nmol/L) Insufficiency 20 - 30 ng/mL (50 - 75 nmol/L) Sufficiency 30 - 100 ng/mL (75 - 250 nmol/L) Toxicity >100 ng/mL (>250 nmol/L) Serum or plasma ferritin rodri surement (mass/volume)Ordered By: Raffaele Kirby on 04-28-2023 Ferritin [Mass/Vol] 15 ng/mL 8-252 [facility] Progress Noteon 10-16-2017 Synchronizer Authentication Interface Message Text GeneticsRaeann for ReferralZahida [facility] and [facility]oren[facility]. Dr. Juany Claire requested a geneticconsult to discuss the potential effects of Kratom on a .HistoryAt the time of the visit Zahida was 32 years of age and approximately 14 weeks 3days by last menstrual period consistent with a 10 week ultrasound,with an GENNA of 04/13/18. Zahida had a previous ectopic and has ahealthy 9 year old daughter.Zahida stated that she takes Kratom for mood swings and to help with her energylevel and also to relax. She uses a powder form that she buys off the Internetor from an apothecary. She was initially taking approximately 5 tablespoons aday but since becoming , she has reduced the amount to about 3 smallspoonfuls a day.Zahida stated she does not smoke cigarettes, and stopped drinking alcohol assoon as she found out she was , which was the 1st 2-3 weeks ofpregnancy. She knows she is not supposed to change the cat litter box, so thefather of her baby, Nahum, is supposed to be changing the litter.Family and Medical HistoryA and family medical history was obtained which was non-contributory.Ultraso und FindingsThe ultrasound was consistent with prior established dating. Please refer tothe ultrasound report for full details.Genetic Counseling SummaryKratom:Pktom (Perlaa ruddya courtney) is a tropical evergreen from [place].The leaves have been used as a stimulant and analgesic with morphine-likeproperties. The main psychoactive alkaloids from the leaves are mitragynine and7-hydroxymitragynine, and both compounds activate opioid receptors. The leavesare most commonly chewed but can also be smoked or brewed into a tea or herbalsolution. Currently, in the , the production and sale of Kratom-containingproduct s lacks regulation and quality systems specialist, therefore, the amount of activeingredients present in preparations claiming to contain Kratom may vary andcases of adulteration have occurred.Side effects that have been reported with regular, chronic use of Kratom formore than a year and include nausea, weight loss, fatigue, constipation,insomnia, dehydration resulting in increased thirst, frequent urination, andhyperpigmentation of the cheeks. These effects appear to be dose related. Dailyuse of Kratom may lead to dependence, and tolerance is observed, with usershaving to increase their intake to achieve the same effects. Withdrawal symptomsresembling opioid withdrawal have been described which may include:Physical withdrawal symptoms:Insomnia, decreased appetite, nausea, vomiting, muscle spasm and pain, sweating,fever, abdominal pain, diarrhea, headaches, hot flashes, watery eyes and nose,hiccups and shakiness or tremorsPsychological withdrawal symptoms:Anxiety, restlessness, tension, anger, hostility, aggression, sadness,confusion, delusion, hallucination, intense cravingWithdrawal symptoms appear to begin 18 to 24 hours after the last dose andtypically continue for 1 to 14 days with the severity of withdrawal symptomsreported to vary widely. In most cases, withdrawal symptoms seem milder thanopioid withdrawal and social function of dependent individuals are typically notimpacted as in opioid withdrawal. However, there are reports of Kratomwithdrawal causing significant pain that severely affected the individual s workperformance and mental state.Currently, there is lack of scientific literature about the safety of Kratom useduring or , so its use during or whilebreastfeeding is not recommended. Based on what is known regarding the chemistryof Mitragynine and 7-hydroxymitragynine in Kratom, some degree of placentaltransfer to the fetus and during is anticipated. Moreover, there arenumerous other compounds that Kratom may contain that could be of concern.Because Kratom products are not regulated, the risks of consuming contaminatedand/or adulterated products must also be taken into account when assessing risksduring and . There is a single rat study from [facility] thatreported alterations of unclear significance, supposedly affecting thevertebrae and brain, without specific documentation of the exact effects ormethodology of the study.Since Kratom may behave somewhat like an opiate, and since withdrawal in adultshas been documented, we would assume that similar withdrawal symptoms couldoccur in a baby exposed during . Because of this, suddendiscontinuation of Kratom use during would not be recommended, but aslow decrease in the amount over the course of an entire , with thegoal of weaning toward abstinence as delivery approaches, would be expected toreduce the chances of adverse effects on the infant. At this point in time thebenefits of would outweigh potential risks, and could potentiallyreduce the theoretical risks of withdrawal, if the mother is still usingprior to delivery.Maternal Serum Cell-free DNA Screening and [place] Carrier Screening:Although not associated with Kratom use, we discussed the option of maternalserum cell-free DNA screening for chromosome problems and universalcarrier screening that can be used to screen for X-linked and autosomalrecessive conditions.Follow up testing options discussed included: 18-21 week anatomy scan Maternal serum cell-free DNA screening [place] carrier screenFollowing our discussion Zahida elected to have: 18-21 week anatomy scanDavidcharly would like to discuss the maternal serum cell-free DNA screen anduniversal carrier screen with Nahum before deciding whether to proceed with thistesting.Follow-up Ultrasound at 18-21 weeks' gestation to evaluate anatomy is scheduledfor 11/13/17 in the [facility] [place] office. Option of maternal serum cell-free DNA and universal carrier screen(must be done at the [facility]). Zahida is planning on slowly reducing Kratom consumption If still taking Kratom in the last trimester, notify tool room supervisor oftheoretically potential withdrawal in baby after . Encourage - Zahida planning to breastfeed; given contactinformation for [facility] healthcare consultant if additional questions arise. Follow up as clinically indicated. Shahid Diaz MD and Ana Sorenson [facility] Normal [facility] Vital Signs Date Time Vital Sign Value Performing Clinician Facility 08-08-2025 10:19-0500 Body height 160 cm Fer Durand MD Work Phone: [facility] 08-08-2025 10:19-0500 Body mass index (BMI) [Ratio] 21.35 kg/m2 Fer Durand MD Work Phone: [facility] 08-08-2025 10:19-0500 Body temperature 98.6 [degF] Fer Durand MD Work Phone: [facility] 08-08-2025 10:19-0500 Body weight 54.66 kg Fer Durand MD Work Phone: [facility] 08-08-2025 10:19-0500 Diastolic blood pressure 75 mm[Hg] Fer Durand MD Work Phone: [facility] 08-08-2025 10:19-0500 Heart rate 73 /min Fer Durand MD Work Phone: [facility] 08-08-2025 10:19-0500 SaO2% (BldA) [Mass fraction] 98 % Fer Durand MD Work Phone: [facility] 08-08-2025 10:19-0500 Systolic blood pressure 112 mm[Hg] Fer Durand MD Work Phone: [facility] 08-08-2024 10:17-0500 Body height 160 cm Fer Durand MD Work Phone: [facility] 08-08-2024 10:17-0500 Body mass index (BMI) [Ratio] 23.67 kg/m2 Fer Durand MD Work Phone: [facility] 08-08-2024 10:17-0500 Body temperature 98.29 [degF] Fer Durand MD Work Phone: [facility] 08-08-2024 10:17-0500 Body weight 60.6 kg Fer Durand MD Work Phone: [facility] 08-08-2024 10:17-0500 Diastolic blood pressure 84 mm[Hg] Fer Durand MD Work Phone: [facility] 08-08-2024 10:17-0500 Heart rate 73 /min Fer Durand MD Work Phone: [facility] 08-08-2024 10:17-0500 SaO2% (BldA) [Mass fraction] 99 % Fer Durand MD Work Phone: [facility] 08-08-2024 10:17-0500 Systolic blood pressure 125 mm[Hg] Fer Durand MD Work Phone: [facility] 05-28-2024 15:36-0400 Body height 160 cm Fer Durand MD Work Phone: [facility] 05-28-2024 15:36-0400 Body mass index (BMI) [Ratio] 23.65 kg/m2 Fer Durand MD Work Phone: [facility] 05-28-2024 15:36-0400 Body temperature 99 [degF] Fer Durand MD Work Phone: [facility] 05-28-2024 15:36-0400 Body weight 60.55 kg Fer Durand MD Work Phone: [facility] 05-28-2024 15:36-0400 Diastolic blood pressure 84 mm[Hg] Fer Durand MD Work Phone: [facility] 05-28-2024 15:36-0400 Heart rate 75 /min Fer Durand MD Work Phone: [facility] 05-28-2024 15:36-0400 SaO2% (BldA) [Mass fraction] 99 % Fer Durand MD Work Phone: [facility] 05-28-2024 15:36-0400 Systolic blood pressure 128 mm[Hg] Fer Durand MD Work Phone: [facility] 02-06-2024 10:38-0400 Body height 160 cm Fer Durand MD Work Phone: [facility] 02-06-2024 10:38-0400 Body mass index (BMI) [Ratio] 22.59 kg/m2 Fer Durand MD Work Phone: [facility] 02-06-2024 10:38-0400 Body temperature 98.4 [degF] Fer Durand MD Work Phone: [facility] 02-06-2024 10:38-0400 Body weight 57.83 kg Fer Durand MD Work Phone: [facility] 02-06-2024 10:38-0400 Diastolic blood pressure 79 mm[Hg] Fer Durand MD Work Phone: [facility] 02-06-2024 10:38-0400 Heart rate 63 /min Fer Durand MD Work Phone: [facility] 02-06-2024 10:38-0400 SaO2% (BldA) [Mass fraction] 99 % Fer Durand MD Work Phone: [facility] 02-06-2024 10:38-0400 Systolic blood pressure 120 mm[Hg] Fer Durand MD Work Phone: [facility] 12-06-2023 13:17-0500 Body height 160 cm Fer Durand MD Work Phone: [facility] 12-06-2023 13:17-0500 Body mass index (BMI) [Ratio] 22.51 kg/m2 Fer Durand MD Work Phone: [facility] 12-06-2023 13:17-0500 Body temperature 98.4 [degF] Fer Durand MD Work Phone: [facility] 12-06-2023 13:17-0500 Body weight 57.65 kg Fer Durand MD Work Phone: [facility] 12-06-2023 13:17-0500 Diastolic blood pressure 78 mm[Hg] Fer Durand MD Work Phone: [facility] 12-06-2023 13:17-0500 Heart rate 65 /min Fer Durand MD Work Phone: [facility] 12-06-2023 13:17-0500 SaO2% (BldA) [Mass fraction] 99 % Fer Durand MD Work Phone: [facility] 12-06-2023 13:17-0500 Systolic blood pressure 112 mm[Hg] Fer Durand MD Work Phone: [facility] 05-01-2023 08:02-0400 Body mass index (BMI) [Ratio] 23.2 kg/m2 [employer] Juan Manuel Hellinger [employer] Work Phone: [facility] 05-01-2023 08:02-0400 Diastolic blood pressure 81 mm[Hg] [employer] Juan Manuel Hellinger [employer] Work Phone: [facility] 05-01-2023 08:02-0400 Systolic blood pressure 123 mm[Hg] [employer] Juan Manuel Hellinger [employer] Work Phone: [facility] 04-28-2023 13:18-0400 Body height 160.02 cm [employer] Juan Manuel Hellinger [employer] Work Phone: [facility] 04-28-2023 13:18-0400 Body temperature 99 [degF] [employer] Juan Manuel Hellinger [employer] Work Phone: [facility] 04-28-2023 13:18-0400 Body weight 59.42 kg [employer] Juan Manuel Hellinger [employer] Work Phone: [facility] 04-28-2023 13:18-0400 Heart rate 71 /min [employer] Juan Manuel Hellinger [employer] Work Phone: [facility] 04-28-2023 13:18-0400 Respiratory rate 16 /min [employer] Juan Manuel Gray [employer] Work Phone: [facility] 04-28-2023 13:18-0400 SaO2% (BldA) [Mass fraction] 100 % [employer] Juan Manuel Gray [employer] Work Phone: [facility] 06-29-2022 16:10-0400 Body temperature 98.06 [degF] No Pcp Required [facility] 06-29-2022 16:10-0400 Diastolic blood pressure 81 mm[Hg] No Pcp Required [facility] 06-29-2022 16:10-0400 Heart rate 63 /min No Pcp Required [facility] 06-29-2022 16:10-0400 Respiratory rate 18 /min No Pcp Required [facility] 06-29-2022 16:10-0400 SaO2% (BldA) [Mass fraction] 100 % No Pcp Required [facility] 06-29-2022 16:10-0400 Systolic blood pressure 117 mm[Hg] No Pcp Required [facility] 06-29-2022 13:51-0400 Body weight 60 kg No Pcp Required [facility] Encounters Encounter Date Encounter Type Care Provider Facility Start: 08-08-2025 End: 08-08-2025 Patient encounter status Fer Durand MD Work Phone: [facility] Start: 08-08-2025 End: 08-08-2025 Periodic preventive med est patient 18-39 yrs Fer Durand MD Work Phone: [facility] Comment on above: [facility] pavan (Primary Dx); Encounter for hepatitis C screening test for low risk patient; Encounter for screening for HIV; Screening for cardiovascular condition; Diabetes mellitus screening; Hypothyroidism, unspecified type; Raynaud's phenomenon without gangrene Start: 08-08-2025 End: 08-08-2025 ambulatory FER DURAND [facility] Start: 08-08-2025 End: 08-08-2025 Encounter for general adult medical examination without abnormal findings FER DURAND [facility] Start: 05-21-2025 End: 05-21-[address] Fer Durand MD Work Phone: -Laboratory Start: 05-21-2025 End: 05-21-[address] Raffaele Kirby MD -Laboratory Work Phone: Start: 05-21-2025 End: 05-21-2025 ambulatory Fer Durand Facility:[facility] Start: 08-08-2024 End: 08-08-2024 Office outpatient visit 25 minutes Fer Durand MD Work Phone: [facility] Comment on above: Hypothyroidism, unsp ecified type (Primary Dx); Obsessive-compulsive disorder, unspecified type; Insomnia, unspecified type Start: 08-01-2024 End: 08-01-2024 ambulatory Kraig Farah Facility:[facility] Start: 05-28-2024 End: 05-28-2024 Office outpatient visit 15 minutes Fer Durand MD Work Phone: [facility] Comment on above: Dysuria (Primary Dx) ; Acute cystitis without hematuria Start: 02-06-2024 End: 02-06-2024 Office outpatient visit 15 minutes Fer Durand MD Work Phone: [facility] Comment on above: Hypothyroidism, unsp ecified type (Primary Dx) Start: 12-12-2023 End: 12-16-2023 ambulatory FER DURAND [facility] Start: 12-06-2023 End: 12-06-2023 Office outpatient new 60 minutes Fer Durand MD Work Phone: [facility] Comment on above: Melanie's disease (Primary Dx); Hypothyroidism, unspecified type; Fatigue, unspecified type Start: 12-04-2023 End: 12-04-2023 ambulatory [facility] Work Phone: Start: 12-04-2023 End: 12-04-2023 Patient encounter procedure [facility] Work Phone: Start: 09-04-2023 End: 09-04-2023 ambulatory [facility] Work Phone: Start: 09-04-2023 End: 09-04-2023 Patient encounter procedure [facility] Work Phone: Start: 04-28-2023 End: 04-28-2023 ambulatory [facility] Juan Manuel Gray [employer] Work Phone: [facility] Work Phone: Start: 04-28-2023 End: 04-28-2023 Patient encounter procedure [employer] Juan Manuel Gray [employer] Work Phone: [facility] Work Phone: Start: 04-28-2023 End: 04-28-2023 Patient encounter procedure [employer] Juan Manuel Gray [employer] Work Phone: [facility] Work Phone: Start: 06-29-2022 End: 06-29-2022 Emergency department patient visit Tim Fontaine [facility] Emergency 11 Start: 11-13-2017 End: 11-13-[address] [facility] [facility] Start: 10-16-2017 End: 10-16-2017 Ambulatory SHAHIDCHELSY DIAZ [facility] Procedures Date Procedure Procedure Detail Performing Clinician Start: 05-28-2024 Urnls dip stick/tabl et rgnt auto w/o microscopy Fer Durand MD Work Phone: Start: 12-06-2023 Adult depression screening assessment Fer Durand MD Work Phone: Plan of Treatment Date Care Activity Detail Author Start: 2060 RSV Vaccines (1 - 1- dose 75+ series) RSV Vaccines (1 - 1-dose 75+ series) [facility] Start: 2035 Administration of he rpes zoster vaccine Zoster Vaccines (1 of 2) [facility] Start: 08-14-2026 End: 08-14-2026 Patient encounter procedure 08/14/2026 10:00 AM EST Office Visit [facility] [address] Fer Durand MD [address] [place] [address] [facility] Start: 08-08-2026 Depression screening using PHQ-9 (Patient Health Questionnaire 9) score Depression Screening/Follow-Up (PHQ-2/9) [facility] Start: 08-08-2026 History and physical examination, annual for health maintenance Wellness Visit [facility] Start: 03-31-2026 Influenza vaccination Influenza Vacc ine (#1) [facility] Comment on above: Postponed from 06/02 (Patient Refused) Start: 08-08-2025 End: 08-08-2025 Patient encounter procedure 08/08/2025 10:20 AM EST Office Visit [facility] [address] [id number] Fer Durand MD [address] [id number] [facility] Start: 06-02-2025 COVID-19 Vaccine ( season) COVID-19 Vaccine ( season) [facility] Start: 03-31-2025 Influenza vaccination Influenza Vacc ine (#1) [facility] Comment on above: Postponed from 06/02 (Patient Refused) Start: 12-05-2024 Depression screening using PHQ-9 (Patient Health Questionnaire 9) score [facility] Start: 08-08-2024 End: 08-08-2024 Patient encounter procedure 08/08/2024 10:20 AM EST Office Visit [facility] [address] [place] [address] Fer Durand MD [address] [place] [address] [facility] Start: 06-02-2024 COVID-19 Vaccine ( season) COVID-19 Vaccine ( season) [facility] Start: 06-02-2024 Influenza vaccination [facility] Start: 02-06-2024 End: 02-06-2024 Patient encounter procedure 02/06/2024 10:40 AM EDT Office Visit [facility] [address] [place] [address] Fer Durand MD [address] [facility] [place] [address] [facility] Start: 06-02-2023 COVID-19 Vaccine ( season) COVID-19 Vaccine ( season) [facility] Start: 06-02-2023 Influenza vaccination Sequenti al Influenza Vaccine (#1) [facility] Start: 2015 Screening for malign ant neoplasm of cervix [facility] Start: 2012 Vaccination for danika n papillomavirus HPV Vaccines (1 - 3-dose SCDM series) [facility] Start: 2006 Screening for malign ant neoplasm of cervix Pap Smear [facility] Start: 2004 Hepatitis B vaccination Hepati tis B Vaccines (1 of 3 - 19+ 3-dose series) [facility] Start: 2004 Vaccination for diphtheria, pertussis, and tetanus Tetanus/Diphtheria/Pert ussis (1 - Tdap) [facility] Start: 2003 Hepatitis C screening Hepatitis C Sc reening [facility] Start: 2000 HIV screening HIV Screening [facility] Start: 1998 Varicella vaccination Varicell a Vaccines (1 of 2 - 13+ 2-dose series) [facility] Start: 1997 Depression screening using PHQ-9 (Patient Health Questionnaire 9) score Depression Screening (PHQ-2/9) [facility] Start: 1988 History and physical examination, annual for health maintenance Wellness Visit [facility] Start: 1986 Qjitemp-zjfys-pazmfe a vaccination MMR Vaccines (1 of 1 - Standard series) [facility] Start: 1985 Tetanus vaccination Tetanus: Every 1 0yrs [facility] End: 05-28-2025 Bacteria identified in Unspecified specimen by Aerobe culture Urine Aerobic Culture Microbiology Routine Acute cystitis without hematuria 1 Occurrences starting 05/28/2024 until 05/28/2025 [facility] Work Phone: Comment on above: 1 Occurrences starti ng 05/28/2024 until 05/28/2025 Bacteria identified in Unspecified specimen by Aerobe culture Urine Aerobic Culture Microbiology Routine Acute cystitis without hematuria 05/28/2024 4:22 PM EDT [facility] End: 12-05-2024 C reactive protein [Mass/volume] in Serum or Plasma CRP, Inflammation Lab Routine Fatigue, unspecified type 1 Occurrences starting 12/06/2023 until 12/05/2024 [facility] Comment on above: 1 Occurrences starti ng 12/06/2023 until 12/05/2024 End: 12-05-2024 Comprehensive metabolic 2000 panel - Serum or Plasma Comprehensive Metabolic Panel Lab Routine Fatigue, unspecified type 1 Occurrences starting 12/06/2023 until 12/05/2024 [facility] Work Phone: Comment on above: 1 Occurrences starti ng 12/06/2023 until 12/05/2024 End: 08-08-2026 Comprehensive metabolic 2000 panel - Serum or Plasma Comprehensive Metabolic Panel Lab Routine Screening for cardiovascular condition Diabetes mellitus screening 1 Occurrences starting 08/08/2025 until 08/08/2026 [facility] Comment on above: 1 Occurrences starti ng 08/08/2025 until 08/08/2026 End: 12-05-2024 Erythrocyte sedimentation rate Sedimentation Rate Lab Routine Fatigue, unspecified type 1 Occurrences starting 12/06/2023 until 12/05/2024 [facility] Comment on above: 1 Occurrences starti ng 12/06/2023 until 12/05/2024 End: 08-08-2026 Hepatitis C Ab with Reflex to HCV Virus Quantitation Hepatitis C Ab with Reflex to HCV Virus Quantitation Lab Routine Encounter for hepatitis C screening test for low risk patient 1 Occurrences starting 08/08/2025 until 08/08/2026 [facility] Comment on above: 1 Occurrences starti ng 08/08/2025 until 08/08/2026 End: 08-08-2026 Human immunodeficiency virus antibody test HIV 1/2 Screen (4th Generation) Lab Routine Encounter for screening for HIV 1 Occurrences starting 08/08/2025 until 08/08/2026 [facility] Comment on above: 1 Occurrences starti ng 08/08/2025 until 08/08/2026 End: 08-08-2026 Lipid 1996 panel - Serum or Plasma Lipid Panel Lab Routine Screening for cardiovascular condition 1 Occurrences starting 08/08/2025 until 08/08/2026 [facility] Work Phone: Comment on above: 1 Occurrences starti ng 08/08/2025 until 08/08/2026 End: 12-05-2024 Measurement of thyroperoxidase antibody Thyroid peroxidase antibody (TPO) Lab Routine Melanie's disease 1 Occurrences starting 12/06/2023 until 12/05/2024 [facility] Comment on above: 1 Occurrences starti ng 12/06/2023 until 12/05/2024 End: 12-05-2024 Thyroid hormone tests Thyroglobulin Tumor Marker with Thyroglobulin Antibody Lab Routine Melanie's disease 1 Occurrences starting 12/06/2023 until 12/05/2024 [facility] Comment on above: 1 Occurrences starti ng 12/06/2023 until 12/05/2024 End: 12-05-2024 Thyrotropin binding inhibitory immunoglobulins measurement Thyrotropin Receptor Antibody Lab Routine Melanie's disease 1 Occurrences starting 12/06/2023 until 12/05/2024 [facility] Comment on above: 1 Occurrences starti ng 12/06/2023 until 12/05/2024 Payers Date Payer Category Payer Self-pay [id number] 2022 Medicaid [facility] MANAGED [facility] MEDICAID COMMUNITY PLAN [id number] 2022-Present [phone] [place] [id number] 2022 Medicaid (Managed Care) [facility] COMMUNITY PLAN [id number] 2013 Unknown [id number] 1985 Unknown [id number] 1985 Unknown [id number] 1985 Unknown [id number] 1985 Unknown [id number] Private Health Insurance [id number] Unknown [facility] COMM PLAN Unknown [id number] Unknown [id number] Social History Date Type Detail Facility [facility] Start: 05-01-2023 End: 05-01-2023 Tobacco smoking consumption unknown [facility] Start: 1985 Sex Assigned At Female [facility] Start: 12-06-2023 End: 08-08-2025 Tobacco smoking status NHIS Ex-smoker [facility] Start: 10-02-1998 End: 12-04-2017 History of tobacco use Current smoker [facility] Start: 10-02-1998 End: 12-04-2017 History of tobacco use Cigarette Smoker [facility] Start: 12-06-2023 End: 08-08-2025 Cigarettes smoked current (pack per day) - Reported 1 [facility] History of tobacco use Passive smoker [facility] Start: 12-06-2023 End: 08-08-2025 Tobacco use and exposure Smokeless tobacco non-user [facility] Start: 04-09-2014 End: 08-08-2025 Tobacco use panel [facility] Start: 1985 Sex Assigned At Not on file [facility] Start: 08-28-2023 Gender identity Identifies as female gender (finding) [facility] Start: 08-28-2023 Sexual orientation Heterosexual (finding) [facility] Start: 02-06-2024 End: 08-08-2025 Alcohol intake Lifetime non-drinker (finding) [facility] How hard is it for y ou to pay for the very basics like food, housing, medical care, and heating Not hard at all [facility] (I/We) worried wheth er (my/our) food would run out before (I/we) got money to buy more. Never true [facility] Has the [employer] threatened to shut off services in your home in past 12Mo No [facility] Clinical Notes 12-06-2023 to 08-08-2025 Assessment & Plan Note - Fer Durand MD - 08/08/2025 10:47 AM ESTAssessment & Plan Note - Fer Durand MD - 08/08/2025 10:47 AM ESTPatient InstructionsAttachmentsAttachments Note Date & Type Note Facility 08-08-2025 Evaluation + Plan note Associated Problem(s): Hypothyroidism Continue to follow with endocrine [facility] 08-08-2025 Miscellaneous Notes Associate d Problem(s): Hypothyroidism Continue to follow with endocrine documented in this encounter [facility] 08-08-2025 Instructions Fer Durand MD - 08/08/2025 10:27 AM EST Problem List Items Addressed This Visit Hypothyroidism Continue to follow with endocrine Raynaud phenomenon Other Visit Diagnoses Well adult health check - Primary Encounter for hepatitis C screening test for low risk patient Relevant Orders Hepatitis C Ab with Reflex to HCV Virus Quantitation Encounter for screening for HIV Relevant Orders HIV 1/2 Screen (4th Generation) Screening for cardiovascular condition Relevant Orders Lipid Panel Comprehensive Metabolic Panel Diabetes mellitus screening Relevant Orders Comprehensive Metabolic Panel We recommend healthy eating. Lots of fruits and vegetables. Frozen or fresh are the best. Chose lean meats. Avoid fatty foods like deep fried foods, amharic fries, potato chips. Eat minimal amounts of sweets. Avoid sweet beverages. We recommend 20-30 minutes of aerobic exercise 3-4 days a week. This is where your are breathing a little heavier than normal, like a brisk walk. Health Maintenance Topic Date Due MMR Vaccines (1 of 1 - Standard series) Never done Wellness Visit Never done Varicella Vaccines (1 of 2 - 13+ 2-dose series) Never done HIV Screening Never done Hepatitis C Screening Never done Tetanus/Diphtheria/Pertussis (1 - Tdap) Never done Hepatitis B Vaccines (1 of 3 - 19+ 3-dose series) Never done HPV Vaccines (1 - 3-dose SCDM series) Never done Cervical Cancer Screening Never done COVID-19 Vaccine ( - 2024- season) Never done Influenza Vaccine (1) 03/31/2026 (Originally 06/02/2025) Depression Screening/Follow-Up (PHQ-11/10) 08/08/2026 Zoster Vaccines (1 of 2) 2035 RSV Vaccines (1 - 1-dose 75+ series) 2060 Meningococcal B Vaccine Aged Out Pneumococcal Vaccine Aged Out HIB Vaccines Aged Out IPV Vaccines Aged Out Hepatitis A Vaccines Aged Out Meningococcal ACWY Vaccine Aged Out Rotavirus Vaccines Aged Out If any referrals were placed at the time of your visit please allow 2 weeks for processing. If you haven't heard from anyone within 2 weeks please contact my office so we can look into the status of your referral. Please answer your phone for the next 2 weeks to receive the call from the doctor we referred you to. Please keep the appointment with your doctor. If you can not make the appointment for some reason please call to cancel and do not just "No Show" or not show up for the appointment. This makes it hard for us to get you future appointments. Thank you for your cooperation If you were given any labs today please ensure they are completed according to the directions given. Once labs are completed please allow 1-2 weeks for us to receive the results, review them, and let you know what steps, if any, are needed next. If you haven't heard from us after that please call to inquire. If labs were ordered to be done PRIOR to your next visit we will discuss the results at the time of your office visit. If any procedures or imaging studies were ordered that must be prior authorized please give us 2 weeks to get them approved. Once approved someone should call you to schedule them or give you a date and time that they were scheduled for. If you haven't heard anything within 2 weeks of the office visit please call the office so we can look into their status. The following attachments cannot be sent through Care Everywhere.Raynaud's Phenomenon ([place]ese)documented in this encounter [facility] 08-08-2025 Note OUTPATIENT WELL WOMA N PROGRESS NOTE Subjective: Zahida Rice is a 39 y.o. female and is here for a preventative care visit. Annual Exam (Physical /Concerns Wants to make sure to get all yearly blood work ordered. ) Last seen by myself on 08/08/2024 Questions or concerns Hypothyroidism Followed by endocrine Taking trisent daily Using trazodone for sleep Sleep is OK Going to sleep Ok but not stay asleep Trazodone did not help We discussed OCD at her last visit Declined medication Diet Very healthy Exercise Yes Weight down from last year Wt Readings from Last 3 Encounters: 08/08/24 60.6 kg (133 lb 9.6 oz) 05/28/24 60.6 kg (133 lb 8 oz) 02/06/24 57.8 kg (127 lb 8 oz) Substances Caffeine energy drink twice a day Tobacco no Alcohol no Drugs no Obstetrics/gynecology Preg 2 LMP 3 weeks Regular Last mammogram not due yet Last Pap 6 years Mother with raynauds She says has white finger in cold Not ready for meds Vaccines Reviewed and declined Blood work orderd Health Maintenance Due Topic Date Due - MMR Vaccines (1 of 1 - Standard series) Never done - Wellness Visit Never done - Varicella Vaccines (1 of 2 - 13+ 2-dose series) Never done - HIV Screening Never done - Hepatitis C Screening Never done - Tetanus/Diphtheria/Pertussis (1 - Tdap) Never done - Hepatitis B Vaccines (1 of 3 - 19+ 3-dose series) Never done - HPV Vaccines (1 - 3-dose SCDM series) Never done - Cervical Cancer Screening Never done - Depression Screening/Follow-Up (PHQ-2/9) 12/05/2024 - Influenza Vaccine (1) Never done - COVID-19 Vaccine ( season) Never done The following portions of the patient's history were reviewed and updated as appropriate: allergies, current medications, past family history, past medical history, past social history, past surgical history and problem list. Past Medical History: Diagnosis Date - Asthma - Disease of thyroid gland - Melanie's disease 2011 Past Surgical History: Procedure Laterality Date - CHOLECYSTECTOMY Social History[1] Family History Problem Relation Age of Onset - Hypertension Mother - Hypothyroidism Mother - Heart failure Mother - Anemia Mother - No Known Problems Father - Hypothyroidism Sister - Hypothyroidism Maternal Grandmother Allergies[2] Review of Systems Constitutional: Negative for fever. HENT: Negative for sinus pressure and sinus pain. Eyes: No change in vision Respiratory: Negative for cough, shortness of breath and wheezing. Cardiovascular: Negative for chest pain. Gastrointestinal: Negative for abdominal pain, constipation, diarrhea, nausea and vomiting. Genitourinary: Negative for menstrual problem. Musculoskeletal: Negative for arthralgias and myalgias. Skin: Negative for rash and wound. Allergic/Immunologic: Negative for food allergies. Neurological: Positive for headaches. Negative for dizziness. Psychiatric/Behavioral: Negative for sleep disturbance. The patient is not nervous/anxious. No depression Objective: BP Readings from Last 3 Encounters: 08/08/24 125/84 05/28/24 128/84 02/06/24 120/79 Ht 5' 3" BMI 23.67 kg/m Physical Exam Constitutional: Appearance: Normal appearance. She is normal weight. HENT: Head: Normocephalic and atraumatic. Right Ear: Tympanic membrane normal. Left Ear: Tympanic membrane normal. Nose: Nose normal. Mouth/Throat: Mouth: Mucous membranes are moist. Pharynx: Oropharynx is clear. Eyes: Conjunctiva/sclera: Conjunctivae normal. Pupils: Pupils are equal, round, and reactive to light. Cardiovascular: Rate and Rhythm: Normal rate and regular rhythm. Pulses: Normal pulses. Heart sounds: Normal heart sounds. Pulmonary: Effort: Pulmonary effort is normal. Breath sounds: Normal breath sounds. Abdominal: General: Bowel sounds are normal. Palpations: Abdomen is soft. Musculoskeletal: General: Normal range of motion. Cervical back: Normal range of motion and neck supple. Skin: General: Skin is warm and dry. Neurological: General: No focal deficit present. Psychiatric: Mood and Affect: Mood normal. Behavior: Behavior normal. Judgment: Judgment normal. Assessment: Healthy female exam.@ Plan: Problem List Items Addressed This Visit None No follow-ups on file. Health Maintenance Due Topic Date Due - MMR Vaccines (1 of 1 - Standard series) Never done - Wellness Visit Never done - Varicella Vaccines (1 of 2 - 13+ 2-dose series) Never done - HIV Screening Never done - Hepatitis C Screening Never done - Tetanus/Diphtheria/Pertussis (1 - Tdap) Never done - Hepatitis B Vaccines (1 of 3 - 19+ 3-dose series) Never done - HPV Vaccines (1 - 3-dose SCDM series) Never done - Cervical Cancer Screening Never done - Depression Screening/Follow-Up (PHQ-2/9) 12/05/2024 - Influenza Vaccine (1) Never done - COVID-19 Vaccine ( - 2024- season) Never done (more content not included)... 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 female and is here for a preventative care visit. Annual Exam (Physical /Concerns Wants to make sure to get all yearly blood work ordered. ) Last seen by myself on 08/08/2024 Questions or concerns Hypothyroidism Followed by endocrine Taking trisent daily Using trazodone for sleep Sleep is OK Going to sleep Ok but not stay asleep Trazodone did not help We discussed OCD at her last visit Declined medication Diet Very healthy Exercise Yes Weight down from last year Wt Readings from Last 3 Encounters: 08/08/24 60.6 kg (133 lb 9.6 oz) 05/28/24 60.6 kg (133 lb 8 oz) 02/06/24 57.8 kg (127 lb 8 oz) Substances Caffeine energy drink twice a day Tobacco no Alcohol no Drugs no Obstetrics/gynecology Preg 2 LMP 3 weeks Regular Last mammogram not due yet Last Pap 6 years Mother with raynauds She says has white finger in cold Not ready for meds Vaccines Reviewed and declined Blood work orderd Health Maintenance Due Topic Date Due MMR Vaccines (1 of 1 - Standard series) Never done Wellness Visit Never done Varicella Vaccines (1 of 2 - 13+ 2-dose series) Never done HIV Screening Never done Hepatitis C Screening Never done Tetanus/Diphtheria/Pertussis (1 - Tdap) Never done Hepatitis B Vaccines (1 of 3 - 19+ 3-dose series) Never done HPV Vaccines (1 - 3-dose SCDM series) Never done Cervical Cancer Screening Never done Depression Screening/Follow-Up (PHQ-2/9) 12/05/2024 Influenza Vaccine (1) Never done COVID-19 Vaccine ( - 2024- season) Never done The following portions of the patient's history were reviewed and updated as appropriate: allergies, current medications, past family history, past medical history, past social history, past surgical history and problem list. Past Medical History: Diagnosis Date Asthma Disease of thyroid gland Melanie's disease 2011 Past Surgical History: Procedure Laterality Date CHOLECYSTECTOMY Social History[1] Family History Problem Relation Age of Onset Hypertension Mother Hypothyroidism Mother Heart failure Mother Anemia Mother No Known Problems Father Hypothyroidism Sister Hypothyroidism Maternal Grandmother Allergies[2] Review of Systems Constitutional: Negative for fever. HENT: Negative for sinus pressure and sinus pain. Eyes: No change in vision Respiratory: Negative for cough, shortness of breath and wheezing. Cardiovascular: Negative for chest pain. Gastrointestinal: Negative for abdominal pain, constipation, diarrhea, nausea and vomiting. Genitourinary: Negative for menstrual problem. Musculoskeletal: Negative for arthralgias and myalgias. Skin: Negative for rash and wound. Allergic/Immunologic: Negative for food allergies. Neurological: Positive for headaches. Negative for dizziness. Psychiatric/Behavioral: Negative for sleep disturbance. The patient is not nervous/anxious. No depression Objective: BP Readings from Last 3 Encounters: 08/08/24 125/84 05/28/24 128/84 02/06/24 120/79 Ht 5' 3" BMI 23.67 kg/m Physical Exam Constitutional: Appearance: Normal appearance. She is normal weight. HENT: Head: Normocephalic and atraumatic. Right Ear: Tympanic membrane normal. Left Ear: Tympanic membrane normal. Nose: Nose normal. Mouth/Throat: Mouth: Mucous membranes are moist. Pharynx: Oropharynx is clear. Eyes: Conjunctiva/sclera: Conjunctivae normal. Pupils: Pupils are equal, round, and reactive to light. Cardiovascular: Rate and Rhythm: Normal rate and regular rhythm. Pulses: Normal pulses. Heart sounds: Normal heart sounds. Pulmonary: Effort: Pulmonary effort is normal. Breath sounds: Normal breath sounds. Abdominal: General: Bowel sounds are normal. Palpations: Abdomen is soft. Musculoskeletal: General: Normal range of motion. Cervical back: Normal range of motion and neck supple. Skin: General: Skin is warm and dry. Neurological: General: No focal deficit present. Psychiatric: Mood and Affect: Mood normal. Behavior: Behavior normal. Judgment: Judgment normal. Assessment: Healthy female exam.@ Plan: Problem List Items Addressed This Visit None No follow-ups on file. Health Maintenance Due Topic Date Due MMR Vaccines (1 of 1 - Standard series) Never done Wellness Visit Never done Varicella Vaccines (1 of 2 - 13+ 2-dose series) Never done HIV Screening Never done Hepatitis C Screening Never done Tetanus/Diphtheria/Pertussis (1 - Tdap) Never done Hepatitis B Vaccines (1 of 3 - 19+ 3-dose series) Never done HPV Vaccines (1 - 3-dose SCDM series) Never done Cervical Cancer Screening Never done Depression Screening/Follow-Up (PHQ-2/9) 12/05/2024 Influenza Vaccine (1) Never done COVID-19 Vaccine (2024- season) Never done 08/08/2025 10:31 AM PHQ-9 Review Thoughts that you would be better off , or of hurting yourself in some way 1 If you checked off any problems, how difficult have these problems made it for you to do your work, take care of things at home, or get along with other people? Not difficult at all [1] Social History Tobacco Use Smoking status: Former Current packs/day: 0.00 Average packs/day: 1 pack/day for 19.2 years (19.2 ttl pk-yrs) Types: Cigarettes Start date: 10/02/1998 Quit date: 12/04/2017 Years since quittin.6 Passive exposure: Past Smokeless tobacco: Never Vaping Use Vaping status: Never Used Substance Use Topics Alcohol use: Never Drug use: Never [2] Allergies Allergen Reactions Penicillins Other (See Comments) Reaction unknown, has been told since a child to not take PCN documented in this encounter [facility] 08-08-2024 Instructions Fer Durand MD - 08/08/2024 10:57 AM EST Problem List Items Addressed This Visit Hypothyroidism - Primary Followed by endocrine OCD (obsessive compulsive disorder) Thinking about taking a SSRI Health Maintenance Topic Date Due Tetanus: Every 10yrs Never done Wellness Visit Never done HIV Screening Never done Hepatitis C Screening Never done Cervical Cancer Screening Never done COVID-19 Vaccine (2023- season) Never done Influenza Vaccine (1) 03/31/2025 (Originally 06/02/2024) Depression Screening/Follow-Up (PHQ-2/9) 12/05/2024 Pneumococcal Vaccine: Ped or At-Risk Aged Out If any referrals were placed at the time of your visit please allow 2 weeks for processing. If you haven't heard from anyone within 2 weeks please contact my office so we can look into the status of your referral. Please answer your phone for the next 2 weeks to receive the call from the doctor we referred you to. Please keep the appointment with your doctor. If you can not make the appointment for some reason please call to cancel and do not just "No Show" or not show up for the appointment. This makes it hard for us to get you future appointments. Thank you for your cooperation If you were given any labs today please ensure they are completed according to the directions given. Once labs are completed please allow 1-2 weeks for us to receive the results, review them, and let you know what steps, if any, are needed next. If you haven't heard from us after that please call to inquire. If labs were ordered to be done PRIOR to your next visit we will discuss the results at the time of your office visit. If any procedures or imaging studies were ordered that must be prior authorized please give us 2 weeks to get them approved. Once approved someone should call you to schedule them or give you a date and time that they were scheduled for. If you haven't heard anything within 2 weeks of the office visit please call the office so we can look into their status. The following attachments cannot be sent through Care Everywhere.Obsessive-Compulsive Disorder ([place]ese)Sleep Health: General Info ([place]ese)documented in this encounter [facility] 08-08-2024 Evaluation + Plan note Associated Problem(s): OCD (obsessive compulsive disorder) Thinking about taking a SSRI Lexapro, zoloft, prozac [facility] 08-08-2024 Miscellaneous Notes Associate d Problem(s): OCD (obsessive compulsive disorder) Thinking about taking a SSRI Lexapro, zoloft, prozac Associated Problem(s): Hypothyroidism Followed by endocrine documented in this encounter [facility] 08-08-2024 Evaluation + Plan note Associated Problem(s): Hypothyroidism Followed by endocrine [facility] 08-08-2024 History of Presen t illness Narrative OFFICE VISIT PROGRESS NOTE Here today for Hypothyroidism (6 month follow up) HPI Last seen for this on February 06, 2024 Hypothyroidism Prescribed by endocrinology And triosent or levothyroxine 200 mcg daily She was last seen by endocrinology in [place] on 04/26/2024 Looks like blood work was ordered but I do not see any results of that And she discussed with the continuity coordinator of having me take over her care for her thyroid disorder 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 Has had headaches, and lactating from time to time Had a lot of blood work done Started on cabergoline So for now she will be following up with the endocrine clinic We did discuss anxiety and depression at her last visits Thinks she has OCD Want things done her way Certain routines A lot compulsive thoughts Wash hands, then moisturize, if she touches things then has to wash again Has had this for whole whole life We talked about CBT she said she did a year of online classes and counseling including CBT and did not feel it was helpful Then we talked about medications she was only interested if there is something that could be done short-term She was advised that the first-line treatment would be SSRIs and that usually it is not short-term medication In light of that she would like to wait and do some checking before she starts on anything she also wants to confer with her continuity coordinator At the end of the visit she mentioned that she continues to have problems with sleep she has a hard time going to sleep She has tried melatonin and this messed up her menstrual periods So she would be interested in taking a medication we talked about trying trazodone and she is willing to do that The following portions of the patient's history were reviewed and updated as appropriate: allergies, current medications and problem list. The patient's surgical, family, and social history was reviewed and updated as appropriate. Review of Systems Review of Systems Constitutional: Negative for fever. HENT: Positive for rhinorrhea. Eyes: Negative. Respiratory: Negative for shortness of breath. Cardiovascular: Positive for chest pain. Gastrointestinal: Negative for abdominal pain. Musculoskeletal: Negative for arthralgias and myalgias. Neurological: Positive for light-headedness and headaches. Negative for dizziness. Psychiatric/Behavioral: Positive for sleep disturbance. Vitals: 08/08/24 1017 BP: 125/84 BP Location: Right arm Patient Position: Sitting BP Cuff Size: X-large Adult Pulse: 73 Temp: 98.3 F (36.8 C) TempSrc: Infrared SpO2: 99% Weight: 60.6 kg (133 lb 9.6 oz) Height: 5' 3" BP Readings from Last 3 Encounters: 08/08/24 125/84 05/28/24 128/84 02/06/24 120/79 Wt Readings from Last 3 Encounters: 08/08/24 60.6 kg (133 lb 9.6 oz) 05/28/24 60.6 kg (133 lb 8 oz) 02/06/24 57.8 kg (127 lb 8 oz) Body mass index is 23.67 kg/m . Physical Exam Zahida Rice Is a 38 y.o.. female. Alert and oriented to person, time and place In No Acute Distress Constitutional: Appearance: Normal appearance, HEENT: Head; normocephalic Neck: soft and supple, FROM, no lymphadenopathy or masses No thyromegaly Cardiovascular Rate and Rhythm: Normal rate and regular rhythm: Heart sounds: Normal heart sounds, S1 normal, S2 normal Pulses: Radial pulses: normal and equal Pulmonary: Pulmonary effort is normal. No Respiratory Distress: Breath sounds are normal, no wheezing Abdominal: Palpation: soft and non tender Normal bowel sounds No guarding or rebound Musculoskeletal: Normal ROM Lower extremities: no edema, Skin: is warm and dry, no rashes Neuro: No focal deficits Psych: behavior is normal, mood and affect are normal Assessment/Plan Problem List Items Addressed This Visit Hypothyroidism - Primary Followed by endocrine OCD (obsessive compulsive disorder) Thinking about taking a SSRI Lexapro, zoloft, prozac Relevant Medications traZODone (DESYREL) 50 MG tablet Other Visit Diagnoses Insomnia, unspecified type Relevant Medications traZODone (DESYREL) 50 MG tablet Thyroid reviewed she is continue to see her continuity coordinator Recently started on medication for galactorrhea We discussed anxiety/OCD and the treatment for it She would like to hold off on medications for now Reviewed sleep hygiene and insomnia and she would like to try trazodone Health Maintenance Due Topic Date Due Tetanus: Every 10yrs Never done Wellness Visit Never done HIV Screening Never done Hepatitis C Screening Never done Cervical Cancer Screening Never done COVID-19 Vaccine (2023-) Never done Return in about 1 year (around 08/08/2025). 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 For any new medications prescribed today, patient was educated about indications for the medication, how to take the medication and potential side effects of the medications. Fer Durand MD Please note: Portions of this chart may have been created with [employer] voice recognition software. Occasional wrong-word or "sound-like" substitutions may have occurred due to inherent limitations of the voice recognition software. Please read the chart carefully and recognize, using context, where the substitutions have occurred. documented in this encounter [facility] 05-28-2024 Instructions Fer Durand MD - 05/28/2024 4:11 PM EDT Problem List Items Addressed This Visit None Visit Diagnoses Dysuria - Primary Relevant Orders POC Urinalysis Dipstick, Auto Acute cystitis without hematuria Relevant Medications nitrofurantoin, macrocrystal-monohydrate, (Macrobid) 100 MG capsule Health Maintenance Topic Date Due Tetanus: Every 10yrs Never done Wellness Visit Never done HIV Screening Never done Hepatitis C Screening Never done Cervical Cancer Screening Never done COVID-19 Vaccine ( season) Never done Influenza Vaccine (1) 06/02/2024 Depression Screening/Follow-Up (PHQ-2/9) 12/05/2024 Pneumococcal Vaccine: Ped or At-Risk Aged Out If any referrals were placed at the time of your visit please allow 2 weeks for processing. If you haven't heard from anyone within 2 weeks please contact my office so we can look into the status of your referral. Please answer your phone for the next 2 weeks to receive the call from the doctor we referred you to. Please keep the appointment with your doctor. If you can not make the appointment for some reason please call to cancel and do not just "No Show" or not show up for the appointment. This makes it hard for us to get you future appointments. Thank you for your cooperation If you were given any labs today please ensure they are completed according to the directions given. Once labs are completed please allow 1-2 weeks for us to receive the results, review them, and let you know what steps, if any, are needed next. If you haven't heard from us after that please call to inquire. If labs were ordered to be done PRIOR to your next visit we will discuss the results at the time of your office visit. If any procedures or imaging studies were ordered that must be prior authorized please give us 2 weeks to get them approved. Once approved someone should call you to schedule them or give you a date and time that they were scheduled for. If you haven't heard anything within 2 weeks of the office visit please call the office so we can look into their status. The following attachments cannot be sent through Care Everywhere.UTI (Urinary Tract Infection): Female ([place])documented in this encounter [facility] 05-28-2024 History of Presen t illness Narrative OFFICE VISIT PROGRESS NOTE Here today for urinary symptoms (This has been going on for 7 days. [place] sensitive when urinating, pain going up to kidneys then thudding pain to right kidney and then up all night went frequently and then couldn't go at all. Then all she had was the sensation that she had to go and pushing and saw blood in toilet and something small and weathers, looked like a small chewed up piece of meat. Pain stopped then next day all mid section pain. Still has sensation.) HPI Patient is here with dysuria it has been going on for about a week now Sometimes sensation when urinating at the end of urination Had blood once Fever unknown, but had sweats and chills one night Not had UtI's before Only taken aleve for this Going more frequently Some nausea but can keep food and liquids down The following portions of the patient's history were reviewed and updated as appropriate: allergies, current medications and problem list. The patient's surgical, family, and social history was reviewed and updated as appropriate. Review of Systems Review of Systems Constitutional: Negative for fever. HENT: Negative. Eyes: Negative. Respiratory: Positive for shortness of breath. Cardiovascular: Negative for chest pain. Gastrointestinal: Positive for abdominal pain. Musculoskeletal: Positive for back pain. Neurological: Positive for dizziness and headaches. Psychiatric/Behavioral: Positive for sleep disturbance. Vitals: 05/28/24 1536 BP: 128/84 BP Location: Left arm Patient Position: Sitting BP Cuff Size: X-large Adult Pulse: 75 Temp: 99 F (37.2 C) TempSrc: Infrared SpO2: 99% Weight: 60.6 kg (133 lb 8 oz) Height: 5' 3" BP Readings from Last 3 Encounters: 05/28/24 128/84 02/06/24 120/79 12/06/23 112/78 Wt Readings from Last 3 Encounters: 05/28/24 60.6 kg (133 lb 8 oz) 02/06/24 57.8 kg (127 lb 8 oz) 12/06/23 57.7 kg (127 lb 1.6 oz) Body mass index is 23.65 kg/m . Physical Exam Zahida Rice Is a 38 y.o.. female. Alert and oriented to person, time and place In No Acute Distress Constitutional: Appearance: Normal appearance, HEENT: Head; normocephalic Neck: soft and supple, FROM, no lymphadenopathy or masses No thyromegaly Cardiovascular Rate and Rhythm: Normal rate and regular rhythm: Heart sounds: Normal heart sounds, S1 normal, S2 normal Pulses: Radial pulses: normal and equal Pulmonary: Pulmonary effort is normal. No Respiratory Distress: Breath sounds are normal, no wheezing Back: Very mild CVA tenderness on the right side but she said the left side actually hurts a little bit to Abdominal: Palpation: soft and minimal suprapubic tenderness Normal bowel sounds No guarding or rebound Musculoskeletal: Normal ROM Lower extremities: no edema, Skin: is warm and dry, no rashes Neuro: No focal deficits Psych: behavior is normal, mood and affect are normal Urinalysis did show some white blood cells Will send for culture Assessment/Plan Problem List Items Addressed This Visit None Visit Diagnoses Dysuria - Primary Relevant Orders POC Urinalysis Dipstick, Auto Acute cystitis without hematuria Relevant Medications nitrofurantoin, macrocrystal-monohydrate, (Macrobid) 100 MG capsule Will start on Macrobid and send for culture Patient was advised that if this gets worse she should think about emergency room Health Maintenance Due Topic Date Due Tetanus: Every 10yrs Never done Wellness Visit Never done HIV Screening Never done Hepatitis C Screening Never done Cervical Cancer Screening Never done COVID-19 Vaccine (2022- season) Never done No follow-ups on file. If any referrals were placed at today's visit the patient was instructed to call the office if they havn't heard anything about the referral within 2 weeks of today's visit. For any new medications prescribed today, patient was educated about indications for the medication, how to take the medication and potential side effects of the medications. Fer Durand MD Please note: Portions of this chart may have been created with Snapette voice recognition software. Occasional wrong-word or "sound-like" substitutions may have occurred due to inherent limitations of the voice recognition software. Please read the chart carefully and recognize, using context, where the substitutions have occurred. documented in this encounter [facility] 02-06-2024 Instructions Fer Durand MD - 02/06/2024 11:12 AM EDT Problem List Items Addressed This Visit Hypothyroidism - Primary Let me know who you want to see and we can send a referral Health Maintenance Topic Date Due Tetanus: Every 10yrs Never done Wellness Visit Never done HIV Screening Never done Hepatitis C Screening Never done Cervical Cancer Screening Never done COVID-19 Vaccine ( season) Never done Influenza Vaccine (Season Ended) 2024 Depression Screening (PHQ-2/9) 12/05/2024 Pneumococcal Vaccine: Ped or At-Risk Aged Out If any referrals were placed at the time of your visit please allow 2 weeks for processing. If you haven't heard from anyone within 2 weeks please contact my office so we can look into the status of your referral. Please answer your phone for the next 2 weeks to receive the call from the doctor we referred you to. Please keep the appointment with your doctor. If you can not make the appointment for some reason please call to cancel and do not just "No Show" or not show up for the appointment. This makes it hard for us to get you future appointments. Thank you for your cooperation If you were given any labs today please ensure they are completed according to the directions given. Once labs are completed please allow 1-2 weeks for us to receive the results, review them, and let you know what steps, if any, are needed next. If you haven't heard from us after that please call to inquire. If labs were ordered to be done PRIOR to your next visit we will discuss the results at the time of your office visit. If any procedures or imaging studies were ordered that must be prior authorized please give us 2 weeks to get them approved. Once approved someone should call you to schedule them or give you a date and time that they were scheduled for. If you haven't heard anything within 2 weeks of the office visit please call the office so we can look into their status. documented in this encounter [facility] 02-06-2024 Evaluation + Plan note Associated Problem(s): Hypothyroidism Let me know who you want to see and we can send a referral [facility] 02-06-2024 Miscellaneous Notes Associate d Problem(s): Hypothyroidism Let me know who you want to see and we can send a referral documented in this encounter [facility] 02-06-2024 History of Presen t illness Narrative OFFICE VISIT PROGRESS NOTE Here today for Hypothyroidism (2 MONTH FOLLOW UP) and Fatigue MEME Hdez is here today to follow-up on her hypothyroidism Blood work was done in November at her request Her thyroid peroxidase antibodies were significantly elevated Her thyrotropin receptor antibodies were a little bit above normal And her thyroglobulin antibodies were elevated Currently on triosint 175 mcg daily Normal dose for Levothyroid would be about 100 mcg daily She is on selenium Last TSH was done just a few days before her visit in November We did put in a referral to endocrine here but that was denied because she is already seeing an continuity coordinator So she is still debating about 2 to see we talked about there is another continuity coordinator here in town we also discussed [facility] versus [place] they will think about what they would like to do Overall she says she is feeling better than before She feels the best on Sundays when she takes 2 pills Last visit we talked a bit about anxiety and depression She did not feel that that was the cause of her issues Feels fine today She states that once that this was identified as part of her issue she has been able to control that and does not feel that that is a problem at this point Vital signs are stable Has a dry tongue on the edges of her tongue She has a long list of supplements that she has been taking she stopped almost all of them due to this but does not feel it helped much We did suggest that she might try vitamin B supplement Period lasted up to 9 days last time This was just 1 time The following portions of the patient's history were reviewed and updated as appropriate: allergies, current medications and problem list. The patient's surgical, family, and social history was reviewed and updated as appropriate. Review of Systems Review of Systems Constitutional: Positive for fatigue. Negative for fever. HENT: Negative. Eyes: Negative. Respiratory: Negative for shortness of breath. Cardiovascular: Negative for chest pain. Gastrointestinal: Negative for abdominal pain. Genitourinary: Positive for menstrual problem. Musculoskeletal: Negative for arthralgias and myalgias. Neurological: Positive for headaches. Negative for dizziness. Psychiatric/Behavioral: Positive for sleep disturbance. The patient is nervous/anxious. Vitals: 02/06/24 1038 BP: 120/79 BP Location: Right arm Patient Position: Sitting BP Cuff Size: Adult Pulse: 63 Temp: 98.4 F (36.9 C) TempSrc: Infrared SpO2: 99% Weight: 57.8 kg (127 lb 8 oz) Height: 5' 3" BP Readings from Last 3 Encounters: 02/06/24 120/79 12/06/23 112/78 Wt Readings from Last 3 Encounters: 02/06/24 57.8 kg (127 lb 8 oz) 12/06/23 57.7 kg (127 lb 1.6 oz) Body mass index is 22.59 kg/m . Physical Exam Zahida Rice Is a 38 y.o.. female. Alert and oriented to person, time and place In No Acute Distress Constitutional: Appearance: Normal appearance, HEENT: Head; normocephalic Neck: soft and supple, FROM, no lymphadenopathy or masses No thyromegaly Cardiovascular Rate and Rhythm: Normal rate and regular rhythm: Heart sounds: Normal heart sounds, S1 normal, S2 normal Pulses: Radial pulses: normal and equal Pulmonary: Pulmonary effort is normal. No Respiratory Distress: Breath sounds are normal, no wheezing Back: no CVA tenderness Abdominal: Palpation: soft and non tender Normal bowel sounds No guarding or rebound Musculoskeletal: Normal ROM Lower extremities: no edema, Skin: is warm and dry, no rashes Neuro: No focal deficits Psych: behavior is normal, mood and affect are normal Assessment/Plan Problem List Items Addressed This Visit Hypothyroidism - Primary Let me know who you want to see and we can send a referral For her thyroid at the time to repeat the TSH since it was a change in her dose in early November She said she would contact her continuity coordinator to get that done She still concerned about the antibodies being elevated and suggesting Graves' and Melanie's So they will do some checking and figuring out who she would like to see and then let us know Health Maintenance Due Topic Date Due Tetanus: Every 10yrs Never done Wellness Visit Never done HIV Screening Never done Hepatitis C Screening Never done Cervical Cancer Screening Never done COVID-19 Vaccine ( season) Never done Return in about 6 months (around 08/08/2024). MDM Hypothyroidism If any referrals were placed at today's visit the patient was instructed to call the office if they havn't heard anything about the referral within 2 weeks of today's visit. For any new medications prescribed today, patient was educated about indications for the medication, how to take the medication and potential side effects of the medications. Fer Durand MD Please note: Portions of this chart may have been created with Snapette voice recognition software. Occasional wrong-word or "sound-like" substitutions may have occurred due to inherent limitations of the voice recognition software. Please read the chart carefully and recognize, using context, where the substitutions have occurred. documented in this encounter [facility] 12-06-2023 Instructions Fer Durand MD - 12/06/2023 2:17 PM EST Problem List Items Addressed This Visit Melanie's disease - Primary Relevant Medications Tirosint 175 mcg cap Other Relevant Orders Thyroid peroxidase antibody (TPO) Thyrotropin Receptor Antibody Thyroglobulin Tumor Marker with Thyroglobulin Antibody Ambulatory referral to Endocrinology Hypothyroidism Relevant Medications Tirosint 175 mcg cap Other Relevant Orders Ambulatory referral to Endocrinology Other Visit Diagnoses Fatigue, unspecified type Relevant Orders Comprehensive Metabolic Panel CRP, Inflammation Sedimentation Rate Health Maintenance Topic Date Due Tetanus: Every 10yrs Never done Wellness Visit Never done Depression Screening (PHQ-2/9) Never done HIV Screening Never done Hepatitis C Screening Never done Pap Smear Never done Sequential Influenza Vaccine (1) Never done COVID-19 Vaccine ( season) Never done Pneumococcal Vaccine: Ped or At-Risk Aged Out If any referrals were placed at the time of your visit please allow 2 weeks for processing. If you haven't heard from anyone within 2 weeks please contact my office so we can look into the status of your referral. Please answer your phone for the next 2 weeks to receive the call from the doctor we referred you to. Please keep the appointment with your doctor. If you can not make the appointment for some reason please call to cancel and do not just "No Show" or not show up for the appointment. This makes it hard for us to get you future appointments. Thank you for your cooperation If you were given any labs today please ensure they are completed according to the directions given. Once labs are completed please allow 1-2 weeks for us to receive the results, review them, and let you know what steps, if any, are needed next. If you haven't heard from us after that please call to inquire. If labs were ordered to be done PRIOR to your next visit we will discuss the results at the time of your office visit. If any procedures or imaging studies were ordered that must be prior authorized please give us 2 weeks to get them approved. Once approved someone should call you to schedule them or give you a date and time that they were scheduled for. If you haven't heard anything within 2 weeks of the office visit please call the office so we can look into their status. documented in this encounter [facility] 12-06-2023 History of Presen t illness Narrative Patient: Zahida Rice : 1985 Date: 12/06/23 This 38 y.o. female presents as a new patient to get established for: Hypothyroidism (Recent labs done) History of Present Illness: Ketty is new to me and here today for her first visit to establish care Here today with her partner Questions or concerns History of hypothyroidism And Melanie's in 2011 Currently taking tirosint which is levothyroxine 175 mcg daily Do not have any previous labs Seeing Lorenzo [facility] endocrine in [place] Had blood work done 2 days ago TSH 7.08 T4 is .99 She has changed her diet, and has tried to decrease antiinflammatory foods In Jun she was not feeling good Could not get out of bed Not on any thyroid medication No PCP Did blood work, had issues TSH was high 38 T4 was low Antibodies were high Ended up in the hospital, ended up sending her to endocrine Been seeing them about 1 year Patient was very emotional today Over the last year she just feels like she goes in cycles where they increase her medicine she feels good for little bit and then things get worse again TSH has never been down to normal this last time it was down to 7 She is still having hair loss dry skin body aches and pains fatigue feeling down feeling no energy Soon as I asked questions about her thyroid and what was going on she started crying For the last 2 weeks have been horrible They have changed their diet and are spending lots of money trying to remove all foods that could cause inflammation To the point that she is getting up in the middle of the night to take her levothyroxine so that it can be taken 3 to 4 hours between supplements and meals Previous family doctor ordered some of the thyroid antibody tests but her continuity coordinator would not She wants to know if her changes have made any difference She originally wanted to see Dr. Alonso and for some reason the referral was placed to someplace else and now she would like to try to get into see Dr. Alonso I did touch on anxiety and depression today She has been treated for depression in the past and she said every time she has had depression there is been a reason for it and she does not have any reason for at this time so she does not feel that that is what is causing it Her depression scale is elevated When I talked to her about depression she was pretty adamant that she was not depressed and that was not the cause she feels everything is from the thyroid And she is not open to discussion at this point Past Medical/Surgical History: Past Medical History: Diagnosis Date Asthma Disease of thyroid gland Melanie's disease 2011 Past Surgical History: Procedure Laterality Date CHOLECYSTECTOMY Family History: Family History Problem Relation Age of Onset Hypertension Mother Hypothyroidism Mother No Known Problems Father Hypothyroidism Sister Hypothyroidism Maternal Grandmother Social History: Social History Socioeconomic History Marital status: Single Tobacco Use Smoking status: Former Packs/day: 1 Types: Cigarettes Start date: 10/02/1998 Quit date: 12/04/2017 Years since quittin.0 Passive exposure: Past Smokeless tobacco: Never Social Determinants of Health Financial Resource Strain: Low Risk (12/06/2023) Overall Financial Resource Strain (CARDIA) Difficulty of Paying Living Expenses: Not hard at all Food Insecurity: No Food Insecurity (12/06/2023) Hunger Vital Sign Worried About Running Out of Food in the Last Year: Never true Ran Out of Food in the Last Year: Never true Transportation Needs: No Transportation Needs (12/06/2023) PRAPARE - Transportation Lack of Transportation (Medical): No Lack of Transportation (Non-Medical): No Allergies: Allergies Allergen Reactions Penicillins Other (See Comments) Reaction unknown, has been told since a child to not take PCN Medications: Current Outpatient Medications Medication Sig Dispense Refill cholecalciferol, vitamin D3, (VITAMIN D3 ORAL) Take by mouth daily . CRANBERRY ORAL Take by mouth daily . multivitamin with iron Tab Take by mouth once daily . SELENIUM ORAL Take by mouth daily . Tirosint 175 mcg cap Take 1 (one) capsule (175 mcg total) by mouth One daily except Monday take 2 capsules . No current facility-administered medications for this visit. Review of Systems: Review of Systems Constitutional: Positive for appetite change (decreased) and fatigue. Negative for fever. HENT: Negative for dental problem, sinus pressure and sinus pain. Eyes: Positive for itching. Negative for discharge. Respiratory: Positive for shortness of breath and wheezing. Negative for cough. Cardiovascular: Positive for chest pain. Gastrointestinal: Positive for abdominal pain, constipation, diarrhea and nausea. Negative for vomiting. Musculoskeletal: Positive for arthralgias and myalgias. Skin: Negative for rash and wound. Dry skin Allergic/Immunologic: Negative for food allergies (avoid gluten and dairy). Neurological: Positive for dizziness and headaches. Psychiatric/Behavioral: Positive for sleep disturbance. The patient is nervous/anxious. Physical Exam: Vital Signs: BP 112/78 (BP Location: Left arm, Patient Position: Sitting, BP Cuff Size: Adult) Pulse 65 Temp 98.4 F (36.9 C) (Infrared) Ht 5' 3" Wt 57.7 kg (127 lb 1.6 oz) SpO2 99% BMI 22.51 kg/m Physical Exam Zahida Rice Is a 38 y.o.. female. Alert and oriented to person, time and place In No Acute Distress Constitutional: Appearance: Normal appearance, HEENT: Head; normocephalic Right Ear: Tympanic Membrane and external ear normal, Left Ear: Tympanic Membrane and external ear normal, Right eye: Conjunctiva/sclera normal Left eye: conjunctiva/sclera normal Pupils: Pupils are equal, round, and reactive to light, Extra occular motion is Intact Nose: clear, turbinates are normal Mouth/Throat: clear, Mucus Membranes are Moist, tonsils not enlarged, Pharynx: Uvula is midline, Posterior Pharynx is not injected Neck: soft and supple FROM no lymphadenopathy or masses No thyromegaly Cardiovascular Rate and Rhythm: Normal rate and regular rhythm: Heart sounds: Normal heart sounds, S1 normal, S2 normal Pulses: Radial pulses: normal and equal Pulmonary: Pulmonary effort is normal. No Respiratory Distress: Breath sounds are normal, no wheezing Back: no CVA tenderness Abdominal: Palpation: soft and non tender Normal bowel sounds No guarding or rebound Musculoskeletal: Normal ROM Lower extremities: no edema, Skin: is warm and dry, no rashes Neuro: No focal deficits Psych: behavior is normal, mood and affect are normal Assessment/Plan: Problem List Items Addressed This Visit Melanie's disease - Primary Relevant Medications Tirosint 175 mcg cap Other Relevant Orders Thyroid peroxidase antibody (TPO) Thyrotropin Receptor Antibody Thyroglobulin Tumor Marker with Thyroglobulin Antibody Ambulatory referral to Endocrinology Hypothyroidism Relevant Medications Tirosint 175 mcg cap Other Relevant Orders Ambulatory referral to Endocrinology Other Visit Diagnoses Fatigue, unspecified type Relevant Orders Comprehensive Metabolic Panel CRP, Inflammation Sedimentation Rate She states that no other blood work has been done for a while We will do a CMP as well as ESR and CRP as well as a thyroid antibodies I will place a referral to Dr. Alonso In the meantime she is to continue on her present medications Return in about 2 months (around 02/05/2024). MDM I personally spent 65 minutes on this patient encounter today For any new medications prescribed today, patient was educated about indications for the medication, how to take the medication and potential side effects of the medications. Fer Durand MD Please note: Portions of this chart may have been created with Snapette voice recognition software. Occasional wrong-word or "sound-like" substitutions may have occurred due to inherent limitations of the voice recognition software. Please read the chart carefully and recognize, using context, where the substitutions have occurred. Over the last 2 weeks, how often have you been bothered by any of the following problems? Little interest or pleasure in doing things More than half the days Feeling down, depressed, or hopeless More than half the days PHQ-2 Total Score 4 Trouble falling or staying asleep, or sleeping too much Nearly every day Feeling tired or having little energy Nearly every day Poor appetite or overeating More than half the days Feeling bad about yourself - or that you are a failure or have let yourself or your family down More than half the days Trouble concentrating on things, such as reading the newspaper or watching television Several days Moving or speaking so slowly that other people could have noticed. Or the opposite - being fidgety or restless that you have been moving around a lot more than usual More than half the days Thoughts that you would be better off , or hurting yourself in some way Not at all PHQ-9 Total Score 17 If you checked off any problems, how difficult have these problems made it for you to do your work, take care of things at home, or get along with other people? 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 [facility] Work Phone: Evaluation noteNo assessment information available [facility] Work Phone: Evaluation note* Diagnosis Melanie's disease- Primary Chronic lymphocytic thyroiditis Hypothyroidism, unspecified type Fatigue, unspecified type [facility] Diagnosis Hypothyroidism, unspecified type- Primary [facility] Diagnosis Dysuria- Primary Acute cystitis without hematuria [facility] Diagnosis Hypothyroidism, unspecified type- Primary Hypothyroidism, unspecified type- Primary Obsessive-compulsive disorder, unspecified type Insomnia, unspecified type [facility] Diagnosis Hypothyroidism, unspecified type- Primary Hypothyroidism, unspecified type- Primary Obsessive-compulsive disorder, unspecified type Insomnia, unspecified type Well adult health check- Primary Unspecified general medical examination Encounter for hepatitis C screening test for low risk patient Encounter for screening for HIV Screening for cardiovascular condition Screening for other and unspecified cardiovascular conditions Diabetes mellitus screening Screening for diabetes mellitus Hypothyroidism, unspecified type Raynaud's phenomenon without gangrene [facility] (n[facility]ative)No reason for referral information availableWOhio [facility] Work Phone: Summary Purpose Family History No Family History Records Found Relationship Condition Age at Onset Recorded Date/T brian mother Disorder of thyroid Unknown sister Disorder of thyroid Unknown grandmother Disorder of thyroid Unknown Advance Directives No Advanced Directives Records Found Advance Directive Response Recorded Date/ Time Living Will No April 14, 2018 6:01am Power of Water Chemist No April 14 8 6:01am Advance Directive Response Recorded Date/ Time Living Will No April 14, 2018 5:01am Power of Water Chemist No April 14 8 5:01am Chief Complaint and Reason for Visit Chief Complaint Thyroid, Possible Barraza shimoto's Reason for Visit Hypothyroidism due t o Melanie's thyroiditis Malabsorption due to intolerance of cow milk protein Chief Complaint E ORDERS Chief Complaint E ORDERS E-ORDER Chief Complaint Admit Date E ORDERS May 21, 2025 9: 09am Reason for Referral Specialty Diagnoses / Procedures Referred By Nael t Referred To Contact Endocrinology/Metabolism / Endocrinology Diagnoses Melanie's disease Hypothyroidism, unspecified type Fer Durand MD [address] [place] [address] Teresa Alonso MD [address] [id number] Referral ID Status Reason Start Date Expiration Date V isits Requested Visits Authorized [id number] Authorized 12/06/2023 12/05/2024 1 1 Additional Source Comments INFORMATION SOURCE (unrecogn ized section and content) DATE CREATED AUTHOR 03/26/2018 [facility] DATE CREATED AUTHOR AUTHOR'S ORGANIZ ATION 12/17/2023 [facility] DATE CREATED AUTHOR AUTHOR'S ORGANIZ ATION 05/29/2025 [facility] DATE CREATED AUTHOR AUTHOR'S ORGANIZ ATION 08/10/2025 [facility] <item> Privacy Markings (unrecogniz ed section and content) Section Author: Renu Bundy PROHIBITION ON REDISCLOSURE OF CONFIDENTIAL INFORMATION This notice accompanies a disclosure of information concerning a client made to you with the consent of such client. Care Teams (unrecognized sec tion and content) Team Status: Active Member Role Status Dates No Primary Care Physician Family Provider Active Juan Manuel Gray SLEEVE TURNER, SLEEVE TURNER-C Primary Care Provider Active Team Status: Inactive Member Role Status Dates Juan Manuel Gray SLEEVE TURNER, SLEEVE TURNER-C Primary Care Provider, Referr ing Provider Active Dr. Raffaele Kirby MD Attending Provider Active Team Status: Inactive Member Role Status Dates Juan Manuel Gray SLEEVE TURNER, SLEEVE TURNER-C Primary Care Provider Active Dr. Raffaele Kirby MD Attending Provider, Referring Provi jackie Active Team Status: Active Member Role Status Dates No Primary Care Physician Family Provider Active No Primary Care Physician Primary Care Provider Active Team Status: Inactive Member Role Status Dates No Primary Care Physician Primary Care Provider Active Dr. Raffaele Kirby MD Attending Provider, Referring Provi jackie Active Early Head Start Director Relationship Specialty Start Date End Date Fer Durand MD [address] [place] [address] PCP - General Family Medicine 12/06/23 Team Status: Active Member Role Status Dates No Primary Care Physician Family Provider Active FER DURAND Primary Care Provider Active Team Status: Inactive Member Role Status Dates [place] Primary Care Provider Active Dr. Raffaele Kirby MD Attending Provider, Referring Provi jackie Active Early Head Start Director Relationship Specialty Start Date End Date Fer Durand MD [address] [place] [address] PCP - General Family Medicine 12/06/23 Early Head Start Director Relationship Specialty Start Date End Date Fer Durand MD [address] [place] [address] PCP - General Family Medicine 12/06/23 Early Head Start Director Relationship Specialty Start Date End Date Fer Durand MD [address] [place] [address] PCP - General Family Medicine 12/06/23 Team Status: Active Member Role/Relationship Status Dates No Primary Care Physician Family Provider Active Dr. Fer Durand MD Primary Care Provider Active Team Status: Inactive Member Role/Relationship Status Dates Dr. Fer Durand MD Primary Care Provider Active Start: May 21, 2025 End: May 21, 2025 Dr. Raffaele Kirby MD Attending Provider Active Sta rt: May 21, 2025 End: May 21, 2025 Dr. Raffaele Kirby MD Referring Provider Active Sta rt: May 21, 2025 End: May 21, 2025 Early Head Start Director Relationship Specialty Start Date End Date Fer Durand MD [address] [place] [address] PCP - General Family Medicine 12/06/23 Goals (unrecognized section and content) Goals may be documented in a n alternate sectionGoals may be documented in an alternate sectionGoals may be documented in an alternate sectionGoals may be documented in an alternate section Reason for Visit (unrecogniz ed section and content) Reason Comments Hypothyroidism Recent labs done Reason Comments Hypothyroidism 2 MONTH FOLLOW UP Fatigue Reason Comments urinary symptoms This has been going on for 7 days. [place] sensitive when urinating, pain going up to kidneys then thudding pain to right kidney and then up all night went frequently and then couldn't go at all. Then all she had was the sensation that she had to go and pushing and saw blood in toilet and something small and weathers, looked like a small chewed up piece of meat. Pain stopped then next day all mid section pain. Still has sensation. Reason Comments Hypothyroidism 6 month follow up Reason Comments Annual Exam Physical Concerns Wa nts to make sure to get all yearly blood work ordered. FOR RECORDS PERTAINING TO PATIENTS WHO ARE OR HAVE BEEN ENROLLED IN A CHEMICAL DEPENDENCY/SUBSTANCEABUSE PROGRAM, SOME INFORMATION MAY BE OMITTED. This clinical summary was aggregated from multiple sources. Caution should be exercised in using it in the provision of clinical care. This summary normalizes information from multiple sources, and as a consequence, information in this document may materially change the coding, format and clinical context of patient data. In addition, data may be omitted in some cases. CLINICAL DECISIONS SHOULD BE BASED ON THE PRIMARY CLINICAL RECORDS. [facility] [employer] [facility]. provides no warranty or guarantee of the accuracy or completeness of information in this document.
== END | disposition home or self-care (01) ==
LOC: LAB 11:58
PROVIDERS: PCP Family Medicine; Referring Provider Internal Medicine Endocrinology, Diabetes & Metabolism; Visit Provider Internal Medicine Endocrinology, Diabetes & Metabolism
DX: E03.8 Other specified hypothyroidism (principal); E06.3 Autoimmune thyroiditis
CPT/HCPCS: 36415; 84439; 84443